=== PATIENT | male | born 1990 | race Caucasian/White ===

== ENCOUNTER 2023-04-07 12:12 | Emergency (ER) | payer SELFPAY ==
--- NOTE | 2023-04-07 13:12 | EDPHYS ---
Physician Documentation [facility] Name: Bradford Donaldson Age: 33 yrs Sex: Male : 1990 Arrival Date: 04/07/2023 Time: 12:12 Bed DIS4 Private MD: ED Physician Humble Sanchez HPI: 04/07 13:10 This 33 yrs old Male presents to ER via Ambulatory with complaints of Urinary Problem. [facility] 13:10 Is a 33-year-old male with history of hypertension and herpes that presents emerged [facility] part with complaints of dysuria, discharge, and states he has been in contact with someone diagnosed with chlamydia recently. Historical: - Allergies: 13:09 No Known Allergies; nj1 - PMHx: 13:09 Hypertensive disorder; Herpes; nj1 - PSHx: 13:09 None; nj1 - Immunization history:: Client reports having NOT received the Covid vaccine. - Social history:: Smoking status: Patient reports the use of cigarette tobacco products, denies chronic smoking, but will smoke occasionally, Reported history of juuling and/or vaping. ROS: 13:10 Constitutional: Negative for fever, chills, and weight loss, Cardiovascular: Negative jm for chest pain, palpitations, and edema, Respiratory: Negative for shortness of breath, cough, wheezing, and pleuritic chest pain. 13:10 : Positive for urinary symptoms. 13:10 All other systems are negative. Exam: 13:10 Constitutional: This is a well developed, well nourished patient who is awake, alert, m and in no acute distress. Head/Face: atraumatic. Eyes: EOMI, no conjunctival erythema appreciated ENT: Moist Mucus Membranes Neck: Trachea midline, Supple Chest/axilla: Normal chest wall appearance and motion. Cardiovascular: Regular rate and rhythm. No edema appreciated Respiratory: Normal respirations, no respiratory distress appreciated Abdomen/GI: Non distended Back: Normal ROM Skin: General appearance color normal MS/ Extremity: Moves all extremities, no obvious deformities appreciated, no edema noted to the lower extremities Neuro: Awake and alert Psych: Behavior is normal, Mood is normal, Patient is cooperative and pleasant Vital Signs: 13:04 BP 167 / 101; Pulse 84; Resp 16; Temp 98.6; Pulse Ox 100% ; Weight 88.45 kg; Height 6 nj1 ft. 0 in. ; Pain 02/19; 13:04 Body Mass Index 26.45 (88.45 kg, 182.88 cm) [facility] 13:04 Pain Scale: Adult nj1 MDM: 13:10 Patient medically screened. [facility] 16:05 Differential diagnosis: UTI. Data reviewed: vital signs, nurses notes. Counseling: I dione had a detailed discussion with the patient and/or guardian regarding: the historical points, exam findings, and any diagnostic results supporting the discharge/admit diagnosis, the need for outpatient follow up, to return to the emergency department if symptoms worsen or persist or if there are any questions or concerns that arise at home. Administered Medications: 13:45 Drug: Rocephin (cefTRIAXone) IM 500 mg Route: IM; Site: left deltoid; 13:45 Follow up: Response: Medication administered at discharge. 13:45 Drug: AZITHromycin PO 1 grams Route: PO; 13:45 Follow up: Response: Medication administered at discharge. Disposition Summary: 04/07/23 13:11 Discharge Ordered Location: Home [facility] Condition: Stable [facility] Diagnosis - Dysuria [facility] Followup: [facility] - With: Wil Damon MD - When: 2 - 3 days - Reason: Recheck today's complaints, Continuance of care, Re-evaluation by your physician Discharge Instructions: - Discharge Summary Sheet [facility] - Dysuria [facility] Forms: - Medication Reconciliation Form [facility] - Thank You Letter [facility] - Antibiotic Education [facility] - Prescription Opioid Use [facility] Prescriptions: - Doxycycline Hyclate 100 mg Oral Tablet - take 1 tablet by ORAL route every 12 hours for 14 days; 28 tablet; Refills: 0, [facility] Product Selection Permitted Signatures: Olvin Silva PA PA [facility] Colleen Harry, RN RN Katelin Whitman, RN RN nj1
--- NOTE | 2023-04-07 13:12 | ER ---
Nurse's Notes [facility] Name: Bradford Donaldson Age: 33 yrs Sex: Male : 1990 Arrival Date: 04/07/2023 Time: 12:12 Bed DIS4 Private MD: Diagnosis: Dysuria Presentation: 04/07 13:04 Chief complaint: Patient states: "im pretty sure i have an STD" told by partner she had nj1 chlamydia. Has had pain/discomfort in testicles/groin area. Denies penile discharge. Coronavirus screen: Vaccine status: Patient reports being unvaccinated. Ebola Screen: Patient denies travel to an Ebola-affected area in the 21 days before illness onset. Initial Sepsis Screen: Does the patient meet any 2 criteria? No. Patient's initial sepsis screen is negative. Does the patient have a suspected source of infection? No. Patient's initial sepsis screen is negative. Risk Assessment: Do you want to hurt yourself or someone else? Patient reports no desire to harm self or others. Onset of symptoms was January 08, 2023. 13:04 Method Of Arrival: Ambulatory [facility] 13:04 Acuity: BRUCE 4 nj1 Historical: - Allergies: 13:09 No Known Allergies; nj1 - PMHx: 13:09 Hypertensive disorder; Herpes; nj1 - PSHx: 13:09 None; nj1 - Immunization history:: Client reports having NOT received the Covid vaccine. - Social history:: Smoking status: Patient reports the use of cigarette tobacco products, denies chronic smoking, but will smoke occasionally, Reported history of juuling and/or vaping. Screenin:32 [facility] ED Fall Risk Assessment (Adult) Score/Fall Risk Level 0 - 2 = Low Risk hb Oriented to surroundings, Maintained a safe environment. Abuse screen: Denies threats or abuse. Denies injuries from another. Nutritional screening: No deficits noted. Tuberculosis screening: No symptoms or risk factors identified. Assessment: 13:32 General: Appears in no apparent distress. Behavior is calm, cooperative. Pain: Pain hb currently is 3 out of 10 on a pain scale. Neuro: Level of Consciousness is awake, alert, obeys commands, Oriented to person, place, time, situation. Cardiovascular: Patient's skin is warm and dry. Respiratory: Respiratory effort is even, unlabored, Respiratory pattern is regular, symmetrical. GI: No signs and/or symptoms were reported involving the gastrointestinal system. : Reports pain with urination. EENT: No signs and/or symptoms were reported regarding the EENT system. Derm: Skin is pink, warm \\T\\ dry. Musculoskeletal: No signs and/or symptoms reported regarding the musculoskeletal system. Vital Signs: 13:04 BP 167 / 101; Pulse 84; Resp 16; Temp 98.6; Pulse Ox 100% ; Weight 88.45 kg; Height 6 nj1 ft. 0 in. ; Pain 4/10; 13:04 Body Mass Index 26.45 (88.45 kg, 182.88 cm) [facility] 13:04 Pain Scale: Adult [facility] ED Course: 12:14 Patient arrived in ED. am2 12:21 Olvin Silva PA is PHCP. [facility] 12:21 Humble Sanchez MD is Attending Physician. [facility] 13:09 Triage completed. nj1 13:10 Arm band placed on right wrist. nj1 13:11 Wil Damon MD is Referral Physician. [facility] 13:32 Patient has correct armband on for positive identification. hb 13:36 Colleen Harry, RN is Primary Nurse. hb 13:46 No provider procedures requiring assistance completed. Patient did not have IV access hb during this emergency room visit. Administered Medications: 13:45 Drug: Rocephin (cefTRIAXone) IM 500 mg Route: IM; Site: left deltoid; hb 13:45 Follow up: Response: Medication administered at discharge. hb 13:45 Drug: AZITHromycin PO 1 grams Route: PO; hb 13:45 Follow up: Response: Medication administered at discharge. hb Medication: 13:32 VIS not applicable for this client. hb Outcome: 13:11 Discharge ordered by . [facility] 13:46 Discharged to home ambulatory. hb 13:46 Condition: stable 13:46 Discharge instructions given to patient, Instructed on discharge instructions, follow up and referral plans. medication usage, Demonstrated understanding of instructions, follow-up care, medications, Prescriptions given X 1. 13:46 Patient left the ED. hb Signatures: Olvin Silva PA PA jmm Baxter, Heather, RN RN Molly Hdez am2 Katelin Whitman RN RN nj1 Corrections: (The following items were deleted from the chart) 13:10 13:04 Chief complaint: Patient states: "im pretty sure i have an STD" told by partner nj1 she had chlamydia. Has had pain/discomfort in testicles/groin area. nj1 13:10 13:04 Pulse 84bpm; Resp 16bpm; Pulse Ox 100%; Temp 98.6F; 88.45 kg; Height 6 ft. 0 in.; nj1 BMI: 26.4; Pain 02/19, Adult; nj1
[2023-04-07] MEDS ORDERED: LIDOCAINE 1% MPF 2 ML AMPULE ONE (13:46)
[2023-04-07] MEDS ORDERED: AZITHROMYCIN 250 MG TAB ONE (13:46)
[2023-04-07] MEDS ORDERED: CEFTRIAXONE 500 MG/VIAL ONE (13:46)
[2023-04-07 13:51] VITALS: BP 167/101; TEMP 98.6; O2SAT 100
== END 2023-04-07 13:46 | disposition home or self-care (01) ==
LOC: ER 12:12
DX: R30.0 Dysuria (principal)
CPT/HCPCS: 96372; 99284

== ENCOUNTER 2025-08-07 18:20 | Emergency (ER) | payer SELFPAY ==
--- OUTSIDE RECORDS SUMMARY | 2025-08-07 18:24 | XMS REPORT | Continuity of Care Document ---
Author Name Unknown Address [address] [facility] [address] [place] [address] [facility] Address [address] [facility] [address] [place] [address] Care Team Providers Care Produce Sorter Name Role Phone Pcp, Patient Does Not Have A Primary Care Physic tricia Acosta Hawkins MD Attending Clinician [phone] ACOSTA HAWKINS Attending Clinician Unavailable Acosta Hawkins MD Attending Clinician [phone] Doctor Unassigned, [place] Attending Clinician U TONY Sands Attending Clinician Unavailable TONY SPENCER Attending Clinician Unavailable Lamont Sepulveda MD Attending Clinician Anselmo Murguia MD Attending Clinician [phone] Faiza Laurent DO Attending Clinician ANSELMO MURGUIA Attending Clinician Unavailable Kenroy Renner DO Attending Clinician [phone] Willard Chadwick Attending Clinician UnavailPEG Olivo Attending Clinician Unavailable Only, Ang Db Test Attending Clinician UnavailPeg Olivo MD Attending Clinician [phone] Natali MITCHELL, Nora Attending Clinician Unavaildwight e Unknown, Attending Attending Clinician Unavailab le UNKNOWN, ATTENDING Attending Clinician Unavailab JUAN MANUEL Guallpa Attending Clinician Unavailable VAL LOPEZ Attending Clinician Unavailable SYED MEI Attending Clinician Unavaila ACOSTA Reyes Admitting Clinician Unavailable Lino RUTHERFORD, Acosta Camacho Admitting Clinician [phone] Shantal RUTHERFORD, Anselmo Admitting Clinician [phone] Physician, No Primary or Family Admitting Clinic tricia Unavailable Payers Payer Name Policy Type Policy Number Effective Date Expirati on Date Source [facility] [id number] 2014 00:00:00 Problems Condition Name Condition Details Condition Category Status Onset Date Resolution Date Last Treatment Date Treating Clinician Comments Source Orbital fracture, closed, initial encounter Orbital fracture, closed, initial encounter Disease Active 03-20 00:00: 00 [facility] Cicatricia l ectropion of right lower eyelid Cicatricia l ectropion of right lower eyelid Disease Active 03-20 00:00: 00 [facility] Retrobulba r hematoma Retrobulba r hematoma Disease Active - 00:00: 00 [facility] Overweight (BMI 25.0-29.9) Overweight (BMI 25.0-29.9) Disease Active 04-20 00:00: 00 [facility] Elevated blood pressure reading Elevated blood pressure reading Disease Active 04-20 00:00: 00 [facility] Anxiety Anxiety Disease Active 04-20 00:00: 00 [facility] ADHD ADHD Disease Active 04-04 00:00: 00 [facility] Childhood asthma Childhood asthma Disease Active 04-04 00:00: 00 [facility] Allergies, Adverse Reactions, Alerts Allergy Name Allergy Type Status Severity Reaction(s) Onset Date Inactive Date Treating Clinician Comments Source No Known Allergie s DA Active U 04-16 00:00: 00 [facility] NO KNOWN ALLERGIE S Drug Class Active [facility] Social History Social Habit Start Date Stop Date Quantity Comments Source Sexual orientation U [facility] Exposure to SARS-CoV-2 (event) Not sure [facility] History SDOH Alcohol Frequency [facility] History SDOH Alcohol Std Drinks [facility] History SDOH Alcohol Binge [facility] Alcoholic beverage intake 2024-07-08 00:00:00 2024-07-08 00:00:00 Current drinker of alcohol (finding) [facility] History of Social function 2024-03-17 00:00:00 2024-03-17 00:00:00 [facility] Tobacco use and exposure 2024-03-10 00:00:00 2024-03-10 00:00:00 User of smokeless tobacco [facility] Alcohol intake 2024-03-10 00:00:00 2024-03-10 00:00:00 Current drinker of alcohol (finding) [facility] Alcohol Comment 2020-04-01 00:00:00 2020-04-01 00:00:00 occasional social drink [facility] Sex assigned at 1990 00:00:00 1990 00:00:00 [facility] Smoking Status Start Date Stop Date Source Never smoked tobacco [facility] Medications Ordered Medication Name Filled Medication Name Start Date Stop Date Current Medication? Ordering Clinician Indication Dosage Frequency Signature (SIG) Comments Components Source HYDROcodone -acetaminop hen 5-325 mg tablet 03-25 00:00: 00 04-02 04:59 :00 No 4647 1{tbl} Take 1 tablet by mouth every 6 (six) hours as needed for Pain (scale 7-10) for up to 7 days. Indication s: acute pain [facility] HYDROcodone -acetaminop hen (NORCO 5) 5-325 mg tablet 1 tablet 03-24 15:54: 10 03-24 15:54 :00 No 1{tbl} 1 tablet, Oral, ONCE PRN, 1 dose, Starting on Sun03/24/24 at 1054, Until Sun03/24/24 at 1054, Routine, Pain (scale 1-3), PACU [facility] HYDROmorpho ne (DILAUDID) injection 0.2 mg 03-24 15:17: 11 03-24 18:43 :14 No .2mg 0.2 mg, Slow IV Push, Q5MIN PRN, 10 doses, Starting on Sun03/24/24 at 1017, Until Sun03/24/24 at 1343, Routine, Pain (scale 7-10), PACU, Is this medication approved by a Faculty level provider? Yes, pricing/signage team member approving Restricted medication : PACU RECOVERY [facility] FENTanyl PF (SUBLIMAZE (PF)) injection 25 mcg 03-24 15:17: 03-24 16:12 :00 No 25ug 25 mcg, Slow IV Push, Q5MIN PRN, 4 doses, Starting on Sun03/24/24 at 1017, Until Sun03/24/24 at 1112, Routine, Pain (scale 4-6), PACU [facility] ondansetron (ZOFRAN (PF)) injection 4 mg 03-24 15:17: 11 03-24 18:43 :14 No 4mg 4 mg, Slow IV Push, PRN, 1 dose, Starting on Sun03/24/24 at 1017, Until Sun03/24/24 at 1343, Routine, Nausea and Vomiting (N/V), PACU [facility] bupivacaine -epinephrin e-pf (SENSORCAIN E W/EPINEPHRI NE) 0.5 %-1:200,000 20 mL, lidocaine-e pinephrine (XYLOCAINE W/EPINEPHRI NE) 1 %-1:200,000 20 mL, Hyaluronida se, Human Recomb. (HYLENEX) 266 Units 03-24 14:06: 00 03-24 15:16 :45 No PRN, Starting on Sun03/24/24 at 0906, Intra-op [facility] povidone-io dine (BETADINE) 5 % ophthalmic drops 03-24 14:03: 00 03-24 15:16 :45 No PRN, Starting on Sun03/24/24 at 0903, Until Sun03/24/24 at 1016, Routine, Intra-op [facility] tetracaine (PONTOCAINE ) 0.5 % ophthalmic drops 03-24 14:03: 00 03-24 15:16 :45 No PRN, Starting on Sun03/24/24 at 0903, Until Sun03/24/24 at 1016, Routine, Intra-op [facility] balanced salt soln no.2 irrig. (BSS) ophthalmic solution 03-24 14:03: 00 03-24 15:16 :45 No PRN, Starting on Sun03/24/24 at 0903, Until Sun03/24/24 at 1016, Routine, Intra-op [facility] cephALEXin 500 mg capsule 03-24 00:00: 00 Yes [id number] 500mg Take 1 capsule by mouth 4 (four) times daily. [facility] methylPREDN ISolone 4 mg tablets 03-24 00:00: 00 Yes [id number] Take by mouth SEE-INSTRU CTIONS. follow package directions [facility] acetaminoph en-codeine 300-30 mg tablet 03-24 00:00: 00 03-25 00:00 :00 No 4647 1{tbl} Take 1 tablet by mouth every 4 (four) hours as needed for Pain (scale 7-10). Indication s: acute pain [facility] acetaminoph en-codeine 300-30 mg tablet 03-20 00:00: 00 03-24 00:00 :00 No 4647 1{tbl} Take 1 tablet by mouth every 4 (four) hours as needed for Pain (scale 7-10) for up to 7 days. Indication s: acute pain [facility] lisinopriL (PRINIVIL,Z ESTRIL) tablet 10 mg 03-11 15:15: 00 Yes 10mg 10 mg, Oral, DAILY, First dose on Sun03/11/24 at 1015, Until Discontinu ed, Routine [facility] morpHINE (2 mg/mL) injection 2 mg 03-11 08:32: 31 Yes 2mg 2 mg, Slow IV Push, Q4HPRN, Starting on Sun03/11/24 at 0332, Until Discontinu ed, Routine, Pain (scale 7-10) [facility] sodium chloride 0.65 % nasal spray 03-11 00:00: 00 Yes [id number] 2{spray } Use 2 Sprays in each nostril 4 (four) times daily. [facility] fluticasone propionate 50 mcg/actuati on nasal spray 03-11 00:00: 00 Yes [id number] 1{spray } Use 1 [place] in each nostril in the morning and 1 [place] in the evening. [facility] lisinopriL 10 mg tablet 03-11 00:00: 00 Yes [id number] 10mg Take 1 tablet by mouth in the morning. [facility] erythromyci n 5 mg/gram (0.5 %) ophthalmic ointment 03-11 00:00: 00 Yes [id number] .5[in_u s] Place 0.5 Inches in right eye 4 (four) times daily. [facility] Carboxymeth ylcellulose Sodium (REFRESH TEARS) 0.5 % Drop 03-11 00:00: 00 Yes [id number] 1[drp] Place 1 Drop in both eyes 4 (four) times daily. [facility] acetaminoph en 325 mg tablet 03-11 00:00: 00 03-22 04:59 :00 No [id number] 650mg Take 2 tablets by mouth every 6 (six) hours for 10 days. [facility] traMADoL 50 mg tablet 03-11 00:00: 00 03-19 04:59 :00 No 4647 100mg Take 2 tablets by mouth every 8 (eight) hours as needed for Pain (scale 4-6) for up to 7 days. Indication s: acute pain [facility] HYDROcodone -acetaminop hen 5-325 mg tablet 03-11 00:00: 00 03-19 04:59 :00 No 4647 1{tbl} Take 1 tablet by mouth every 6 (six) hours as needed for Pain (scale 7-10) for up to 7 days. Indication s: acute pain [facility] enoxaparin (LOVENOX) injection 40 mg 03-10 22:00: 00 Yes 40mg 40 mg, Subcutaneo us, DAILY, First dose on Sun03/10/24 at 1700, Until Discontinu ed, Routine [facility] artificial tears(hypro mellose) (ISOPTO-TEA RS) 0.5 % ophthalmic drops 1 Drop 03-10 13:00: 00 Yes 1[drp] 1 Drop, Both Eyes, QID, First dose on Sun03/10/24 at 0800, Until Discontinu ed, Routine [facility] celecoxib (CELEBREX) capsule 200 mg 03-10 13:00: 00 Yes 200mg 200 mg, Oral, BID MEALS, First dose on Sun03/10/24 at 0800, Until Discontinu ed, Routine [facility] fluticasone propionate 50 mcg/actuati on nasal spray 1 [place] 03-10 13:00: 00 Yes 1{spray } 1 [place], Nasal, BID, First dose on Sun03/10/24 at 0800, Until Discontinu ed, Routine [facility] sodium chloride (OCEAN MIST NASAL) 0.65 % nasal spray 2 [place] 03-10 13:00: 00 Yes 2{spray } 2 [place], Nasal, QID, First dose on Sun03/10/24 at 0800, Until Discontinu ed, Routine [facility] docusate (COLACE) capsule 100 mg 03-10 13:00: 00 Yes 100mg 100 mg, Oral, BID, First dose on Sun03/10/24 at 0800, Until Discontinu ed, Routine [facility] hydralAZINE (APRESOLINE ) injection 20 mg 03-10 08:45: 00 03-10 09:14 :00 No 20mg 20 mg, Slow IV Push, ONCE, 1 dose, On Sun03/10/24 at 0345, STAT [facility] erythromyci n (ILOTYCIN) 5 mg/gram (0.5 %) ophthalmic ointment 0.5 Inch 03-10 06:45: 00 Yes .5[in_u s] 0.5 Inch, Right Eye, BID, First dose on Sun03/10/24 at 0145, Until Discontinu ed, Routine
Apply to right eye twice daily
[facility] acetaminoph en (TYLENOL) tablet 650 mg 03-10 06:30: 00 Yes 650mg 650 mg, Oral, Q6H TAPER, First dose on Sun03/10/24 at 0130, Until Discontinu ed, Routine [facility] morpHINE (2 mg/mL) injection 4 mg 03-10 06:15: 00 03-10 06:17 :00 No 4mg 4 mg, Slow IV Push, ONCE, 1 dose, On Sun03/10/24 at 0115, STAT [facility] ondansetron (ZOFRAN (PF)) injection 4 mg 03-10 06:08: 01 Yes 4mg 4 mg, Slow IV Push, Q6HPRN, Starting on Sun03/10/24 at 0108, Until Discontinu ed, Routine, Nausea and Vomiting (N/V) [facility] morpHINE (2 mg/mL) injection 2 mg 03-10 06:07: 47 03-11 06:06 :47 No 2mg 2 mg, Slow IV Push, Q4HPRN, Starting on Sun03/10/24 at 0107, Until Sun03/11/24 at 0106, Routine, Pain (scale 7-10) [facility] traMADoL (ULTRAM) tablet 50 mg 03-10 06:07: 43 03-12 06:06 :43 No 50mg 50 mg, Oral, Q8HPRN, Starting on Sun03/10/24 at 0107, Until Sun03/12/24 at 0106, Routine, Pain (scale 4-6) [facility] morpHINE (4 mg/mL) injection 4 mg 03-10 02:45: 00 03-10 01:46 :00 No 4mg 4 mg, Slow IV Push, ONCE, 1 dose, On 03/09/24 at 2145, Routine [facility] morpHINE (4 mg/mL) injection 4 mg 03-10 01:30: 00 03-10 00:37 :00 No 4mg 4 mg, Slow IV Push, ONCE, 1 dose, On Sun03/09/24 at 2030, Routine [facility] ondansetron (ZOFRAN (PF)) injection 4 mg 03-10 00:30: 00 03-10 00:36 :00 No 4mg 4 mg, Slow IV Push, ONCE, 1 dose, On Sun03/09/24 at 1930, JIM [facility] dexamethaso ne sod phos PF injection 10 mg 03-10 00:30: 00 03-10 00:36 :00 No 10mg 10 mg, Slow IV Push, ONCE, 1 dose, On Sun03/09/24 at 1930, 1 mL [facility] PARoxetine 10 mg tablet 04-20 00:00: 00 Yes [id number] 10mg Take 1 tablet by mouth daily. [facility] Vital Signs Vital Name Observation Time Observation Value Comments S ource Body weight 2024-07-08 18:54:00 96.163 kg [facility] BMI 2024-07-08 18:54:00 29.57 kg/m2 [facility] Body weight 2024-05-09 15:27:00 96.163 kg [facility] BMI 2024-05-09 15:27:00 29.57 kg/m2 [facility] Body weight 2024-03-25 18:51:00 96.163 kg [facility] BMI 2024-03-25 18:51:00 29.57 kg/m2 [facility] Systolic blood pressure 2024-03-24 16:30:00 148 mm[Hg] [facility] Diastolic blood pressure 2024-03-24 16:30:00 94 mm[Hg] [facility] Heart rate 2024-03-24 16:30:00 81 /min [facility] 2024-03-24 16:30:00 13 /min [facility] Oxygen saturation in Arterial blood by Pulse oximetry 2024-03-24 16:30:00 96 /min [facility] Body temperature 2024-03-24 15:19:00 36.72 [facility] Body height 2024-03-24 11:39:00 180.3 cm [facility] Body weight 2024-03-24 11:39:00 96.3 kg [facility] BMI 2024-03-24 11:39:00 29.61 kg/m2 [facility] Systolic blood pressure 2024-03-24 16:30:00 148 mm[Hg] [facility] Diastolic blood pressure 2024-03-24 16:30:00 94 mm[Hg] [facility] Heart rate 2024-03-24 16:30:00 81 /min Unive [facility] Respiratory rate 2024-03-24 16:30:00 13 /min [facility] Oxygen saturation in Arterial blood by Pulse oximetry 2024-03-24 16:30:00 96 /min [facility] Body temperature 2024-03-24 15:19:00 36.72 Millicent [facility] Body height 2024-03-24 11:39:00 180.3 cm [facility] Body weight 2024-03-24 11:39:00 96.3 kg [facility] BMI 2024-03-24 11:39:00 29.61 kg/m2 [facility] Body weight 2024-03-20 15:03:00 94.802 kg [facility] BMI 2024-03-20 15:03:00 29.15 kg/m2 [facility] Body weight 2024-03-17 15:24:00 94.802 kg [facility] BMI 2024-03-17 15:24:00 29.15 kg/m2 [facility] Systolic blood pressure 2024-03-17 13:46:00 147 mm[Hg] [facility] Diastolic blood pressure 2024-03-17 13:46:00 97 mm[Hg] [facility] Heart rate 2024-03-17 13:46:00 89 /min Unive [facility] Body temperature 2024-03-17 13:46:00 36.83 [facility] Body height 2024-03-17 13:46:00 180.3 cm [facility] Body weight 2024-03-17 13:46:00 94.983 kg [facility] BMI 2024-03-17 13:46:00 29.21 kg/m2 [facility] Oxygen saturation in Arterial blood by Pulse oximetry 2024-03-17 13:46:00 99 /min [facility] Systolic blood pressure 2024-03-11 16:51:00 148 mm[Hg] [facility] Diastolic blood pressure 2024-03-11 16:51:00 103 mm[Hg] [facility] Heart rate 2024-03-11 16:51:00 70 /min [facility] Body temperature 2024-03-11 16:51:00 36.61 [facility] Respiratory rate 2024-03-11 16:51:00 18 /min [facility] Oxygen saturation in Arterial blood by Pulse oximetry 2024-03-11 16:51:00 94 /min [facility] Body height 2024-03-10 09:40:00 180.3 cm [facility] Body weight 2024-03-10 04:02:00 90.719 kg [facility] BMI 2024-03-10 04:02:00 27.89 kg/m2 [facility] Systolic blood pressure 2024-03-10 02:50:00 187 mm[Hg] [facility] Diastolic blood pressure 2024-03-10 02:50:00 121 mm[Hg] [facility] Heart rate 2024-03-10 02:50:00 87 /min [facility] Body temperature 2024-03-10 02:50:00 36.83 [facility] Respiratory rate 2024-03-10 02:50:00 20 /min [facility] Oxygen saturation in Arterial blood by Pulse oximetry 2024-03-10 02:50:00 98 /min [facility] Body height 2024-03-09 23:41:00 182.9 cm [facility] Body weight 2024-03-09 23:41:00 90.719 kg [facility] BMI 2024-03-09 23:41:00 27.12 kg/m2 [facility] Procedures Procedure Date / Time Performed Performing Clinicia n Source [address] [place] OPTX ORB FLOOR BLWT FX NAREN/BITAL APPR W/ALLPLSTC 2024-03-24 13:16:00 Acosta Hawkins [facility] [address] - [place] OPEN [place] ORBITAL FLOOR BLOWOUT FX COMBINED APPR 2024-03-24 13:16:00 Acosta Hawkins [facility] [id number] - [place] REPAIR ECTROPION EXTENSIVE 2024-03-24 13:16:00 Acosta Hawkins [facility] CBC WITH DIFF 2024-03-11 10:45:00 Miguel Angel Gonzales [facility] PHOSPHORUS 2024-03-10 10:44:00 Kashif Prieto [facility] MAGNESIUM 2024-03-10 10:44:00 Kashif Prieto [facility] BASIC METABOLIC PANEL (NA, K, CL, CO2, GLUCOSE, BUN, CREATININE, CA) 2024-03-10 10:44:00 Kashif Prieto [facility] CBC WITH DIFF 2024-03-10 10:44:00 [facility] COVID-19 (MOLECULAR TESTING NUCLEIC ACID AMPLIFICATION) 2021-11-23 23:30:00 Molly Herrmann [facility] Encounters Start Date/Time End Date/Time Encounter Type Admission Type Attending Clinicians Care Facility Care Department Encounter ID Source 2024-07-08 14:00:00 2024-07-08 14:15:00 Office Visit Acosta Hawkins [facility] [employer] [facility]. 1.2.840.114 350.1.13.10 4.2.7.2.686 [id number] [facility] 2024-07-08 14:00:00 2024-07-08 14:00:00 Outpatient [facility] [id number] [facility] 2024-04-29 00:00:00 2024-06-17 09:25:20 Telephone Acosta Hawkins [facility] e(ye)[facility]. 1.2.840.114 350.1.13.10 4.2.7.2.686 [id number] [facility] 2024-05-09 10:00:00 2024-05-09 11:44:29 Outpatient [facility] [id number] [facility] 2024-05-09 10:00:00 2024-05-09 11:44:29 Office Visit Acosta Hawkins [facility] [employer]. 1.2.840.114 350.1.13.10 4.2.7.2.686 [id number] [facility] 2024-04-29 13:45:00 2024-04-29 13:45:00 Outpatient R [facility] [id number] [facility] 2024-03-17 00:00:00 2024-04-19 18:25:42 Patient Secure Msg Doctor Unassigned, [place] [facility] [employer] 1..840.114 350.1.13.10 4.2.7.2.686 [id number] [facility] 2024-03-17 00:00:00 2024-04-19 18:25:42 Patient Secure Msg Doctor Unassigned, [place] [facility] [employer] 1..840.114 350.1.13.10 4.2.7.2.686 [id number] [facility] 2024-03-10 00:00:00 2024-04-12 18:07:42 Patient Secure Msg Doctor Unassigned, [place] [facility] 1.114 350.1.13.10 4.2.7.2.686 [id number] [facility] 2024-03-11 00:00:00 2024-04-12 18:06:36 Patient Secure Msg Doctor Unassigned, [place] [facility] e(ye)[facility] 1.840.114 350.1.13.10 4.2.7.2.686 [id number] [facility] 2024-03-25 00:00:00 2024-03-26 09:10:12 Telephone Acosta Hawkins [facility] 1.84.114 350.1.13.10 4.2.7.2.686 [id number] [facility] 2024-03-25 13:45:00 2024-03-25 14:57:53 Outpatient R ACOSTA HAWKINS [facility] [id number] [facility] 2024-03-25 13:45:00 2024-03-25 14:57:53 Office Visit Acosta Hawkins [facility] e[facility]ye[facility] 1.84.114 350.1.13.10 4.2.7.2.686 [id number] [facility] 2024-03-24 08:43:00 2024-03-24 12:18:00 Surgery Acosta Hawkins [facility] 1.2.114 350.1.13.10 4.2.7.2.686 [id number] [facility] 2024-03-24 06:29:00 2024-03-24 11:43:00 Outpatient R ACOSTA HAWKINS [facility] OPH [id number] [facility] 2024-03-24 06:29:00 2024-03-24 11:43:00 Hospital Encounter Acosta Hawkins R [facility] 1.2840.114 350.1.13.10 4.2.7.2.686 [id number] [facility] 2024-03-20 10:00:00 2024-03-20 11:54:52 Outpatient R ACOSTA HAWKINS [facility] [id number] [facility] 2024-03-20 10:00:00 2024-03-20 11:54:52 [facility] 1.840.114 350.1.13.10 4.2.7.2.686 [id number] [facility] 2024-03-18 00:00:00 2024-03-19 15:19:42 Telephone [facility] 1.2.840.114 350.1.13.10 4.2.7.2.686 [id number] [facility] 2024-03-16 00:00:00 2024-03-18 17:25:27 Refill [facility] 1.2.840.114 350.1.13.10 4.2.7.2.686 [id number] [facility] 2024-03-17 10:30:00 2024-03-17 11:21:07 Office [facility]ulved[facility] 1.2840.114 350.1.13.10 4.2.7.2.686 [id number] [facility] 2024-03-17 09:15:00 2024-03-17 09:24:19 Outpatient R TONY SPENCER [facility] [id number] [facility] 2024-03-17 09:15:00 2024-03-17 09:24:19 Office Visit Tony Spencer [facility] 1.2.840.114 350.1.13.10 4.2.7.2.686 [id number] [facility] 2024-03-12 00:00:00 2024-03-12 00:00:00 Telephone Tony Spencer [facility] 1.2.840.114 350.1.13.10 4.2.7.2.686 [id number] [facility] 2024-03-09 23:06:00 2024-03-11 15:34:00 [facility] 1.2.840.114 350.1.13.10 4.2.7.2.686 [id number] [facility] 2024-03-09 18:42:00 2024-03-09 21:50:00 Emergency X ANSELMO MURGUIA YUSaima [facility] ERT [id number] [facility] 2024-03-09 18:42:00 2024-03-09 21:50:00 Emergency Kenroy Renner Yus[facility] [place] 1.2.840.114 350.1.13.10 4.2.7.2.686 [id number] [facility] 2024-03-09 18:42:00 2024-03-09 21:50:00 Emergency X ANSELMO MURGUIA YUSaima [facility] ERT [id number] [facility] 2023-04-16 08:30:00 2023-04-16 11:30:00 Emergency Willard Yo [facility] [id number] [facility] 2021-11-23 19:30:00 2021-11-23 19:30:00 Outpatient R PEG MOY [facility] [id number] [facility] 2021-11-23 19:30:00 2021-11-23 19:30:00 Laboratory Only Only, Ang Db Test Peg Moy [facility] 1.2.840.114 350.1.13.10 4.2.7.2.686 [id number] [facility] 2021-11-23 19:30:00 2021-11-23 17:35:44 Outpatient R PEG MOY [facility] [id number] [facility] 2021-11-23 00:00:00 2021-11-23 00:00:00 Orders Only Doctor Unassigned, [place] [facility] 1.2.840.114 350.1.13.10 4.2.7.2.686 [id number] [facility] 2021-07-10 00:00:00 2021-07-10 00:00:00 Telephone Nora Hurst [facility] 1.2.840.114 350.1.13.10 4.2.7.2.686 [id number] [facility] 2021-07-07 20:36:17 2021-07-07 20:55:13 Laboratory Only Only, Ang Db Test Unknown, Attending [facility]rn [facility] Medical Office Building 1..840.114 350.1.13.10 4.2.7.2.686 [id number] [facility] 2021-07-07 20:20:00 2021-07-07 20:20:00 Outpatient R UNKNOWN, ATTENDING [facility] [id number] [facility] 2021-07-07 00:00:00 2021-07-07 00:00:00 Letter (Out) Doctor Unassigned, [place] [facility] 1.2.840.114 350.1.13.10 4.2.7.2.686 [id number] [facility] 2021-07-07 00:00:00 2021-07-07 00:00:00 Letter (Out) Doctor Unassigned, [place] [facility] 1.2.840.114 350.1.13.10 4.2.7.2.686 [id number] [facility] 2021-03-27 12:40:00 2021-03-27 12:40:00 Outpatient JUAN MANUEL BELLE [facility] [id number] [facility] 2021-02-02 18:00:00 2021-02-02 18:00:[address] [facility] [id number] [facility] 2020-10-20 13:00:00 2020-10-20 13:00:00 Outpatient VAL BLAKE [facility] [id number] [facility] 2020-04-20 14:30:00 2020-04-20 14:30:[address] [facility] [id number] [facility] 2020-04-12 11:40:00 2020-04-12 11:40:[address] [facility] [id number] [facility] 2020-04-01 14:30:00 2020-04-01 14:30:[address] [facility] [id number] [facility] Results Test Description Test Time Test Comments Results Resul t Comments Source - CT HEAD/BRAIN W/O CONT 2023-04-16 10:40:00 [facility])Name: FLORINDA DONALDSON : 1990 Sex: M Name: FLORINDA DONALDSON [facility] : 1990 Age/S: 33 / M [address] [facility] Unit #: [id number] Loc: [place] [address] Phys: Willard Chadwick DO Acct: [id number] Dis Date: Status: REG ER PHONE #: [phone] Exam Date: 04/16/2023 0951 FAX #: [phone] Reason: VISION CHANGES EXAMS: CPT CODE: [id number] CT HEAD/BRAIN W/O CONT 82602 EXAM: - CT HEAD/BRAIN W/O CONT DATE: 04/16/2023 9:44 AM. INDICATION: VISION CHANGES . COMPARISON: None available. TECHNIQUE: Noncontrast images of the brain are obtained from the skull base to the vertex. Axial, sagittal, and coronal images are interpreted. AEC, mA/kV adjustment by patient size, and/or iterative reconstruction technique were used, per departmental dose-optimization program. IV contrast: None. DLP: 873.8 mGy-cm. FINDINGS: BRAIN PARENCHYMA/VENTRICLES There is no evidence of cerebral edema, mass, mass effect, hemorrhage, or recent cortical infarct. The hutton-white distinction appears maintained. The brain volume is age-appropriate. The ventricles are normal in size and configuration. The basal cisterns appear patent. The cerebellopontine angles appear unremarkable. ORBITS, VISIBLE PARANASAL SINUSES AND MASTOIDS Opacification of the right maxillary sinus, the remaining paranasal sinuses are clear. The mastoid air cells are clear. No acute orbital abnormality is seen. SKULL No skull fracture or focal lesion is identified. IMPRESSION: No acute intracranial abnormality. PAGE 1 Signed Report (CONTINUED) Name: FLORINDA DONALDSON [facility] : 1990 Age/S: 33 / M [address] [facility] Unit #: [id number] Loc: [place] [address] Phys: Willard Chadwick DO Acct: [id number] Dis Date: Status: REG ER PHONE #: [phone] Exam Date: 04/16/2023 0951 FAX #: [phone] Reason: VISION CHANGES EXAMS: CPT CODE: [id number] CT HEAD/BRAIN W/O CONT 24902 (Continued) at 1040 Reported and signed by: Kyle Munroe M.D. CC: Willard Chadwick DO Technologist:Gladis Garcia,RT(R),CT CTDI: DLP: Trnscb Date/Time: 04/16/2023 (1039) [email or web address] Orig Print D/T: S: 04/16/2023 (1042) PAGE 2 Signed Report [id number] 10:22:00* Test Item Value Reference Range Interpretation Comme nts TROPONIN-HS (test code = TROPI) <4.0 pg/mL 0-45 N CAUTION: Units o f the current test methodology (pg/mL)differ from the prior test methodology (ng/mL) by a factorof 1000. - XR CHEST 1 [id number] 10:00:00 [facility] : 1990 Sex: M FAX: iWllard Chadwick DO [place]: B St: REG Name: FLORINDA DONALDSON [facility] : 1990 Age/S: 33/M [facility] Unit #: [id number] Loc: [place] [address] Phys: Willard Chadwick DO Acct: [id number] Dis Date: Status: REG ER PHONE #: [phone] Exam Date: 04/16/2023927 FAX #: [phone] Reason: CHEST PAIN EXAMS: CPT CODE: [id number] XR CHEST 1 V 63868 EXAM: - XR CHEST 1 V DATE: 04/16/2023 8:52 AM. INDICATION: CHEST PAIN . COMPARISON: None available. TECHNIQUE: Frontal chest. FINDINGS: Lines, Tubes and Hardware: None. Lungs and Pleura: No focal consolidation, pleural effusion, or pneumothorax is identified. Heart and Mediastinum: The heart size is normal. The mediastinal contours are unremarkable. Pulmonary vascularity is unremarkable. Bones: No acute skeletal abnormalityis identified. Upper abdomen: Within normal limits IMPRESSION: No acute abnormality. at 1000 Reported and signed by: Kyle Munroe M.D. CC: Willard Chadwick DO Technologist: RT RUBI(Janice) Trnscrd Date/Time/By:04/16/2023 (1000) : By: [email or web address] Orig Print D/T: S: 04/16/2023 (1003) PAGE 1 Signed ReportCBC W/O [id number] 09:59:00* Test Item Value Reference Range Interpretation Comme nts WHITE BLOOD CELL (test code = WBC) 6.0 K/mm3 4.5-12.5 N RED BLOOD CELL (test code = RBC) 4.97 mill/mm3 4.0-5.8 N HEMOGLOBIN (test code = HGB) 14.8 gram/dL 13.0-17.5 N HEMATOCRIT (test code = HCT) 45.0 % 42.0-52.0 N MEAN CELL VOLUME (test code = MCV) 90.5 fL 80-98 N MEAN CELL HGB (test code = MCH) 29.8 picogram 27.0-33.0 N MEAN CELL HGB CONCETRATION (test code = MCHC) 32.9 gram/dL 33.0-36.0 L RED CELL DISTRIBUTION WIDTH (test code = RDW) 12.6 % 11.6-16.2 N PLATELET COUNT (test code = PLT) 284 K/mm3 150-450 N MEAN PLATELET VOLUME (test c ode = MPV) 11.2 fL 6.7-11.0 H Consult Notes Date/Time Note Provider Source 2024-03-11 09:13:51 09:14 CM at pt's bedside yesterday and the [employer] was explained to pt. Pt verbalized he would call and see if he could find a plan for himself. [facility] application was also given to pt. Provider can submit medication request to assist pt with paying for mediation at discharge. Will only pay for 2 weeks supply by emailing CM Med request by the provider. Provider can complete the casebook and submit the application. Padmaja LANE, JANUSZ, RN Care Management [email or web address] [phone] [facility] 2024-03-10 17:37:10 Associated Order(s): CONSULT BREWMASTER-ADULT Care Management Social Functional Assessment Patient Name: Florinda Donaldson Age: [age] year old Sex: male Previous admit date: N/A CM met w/patient and mom at bedside to discuss resources: patient has a child <18 who receives medicaid and patient may be able to apply for Medicaid. [facility] Resources provided and discussed, provide [facility] IHC bella along w/Patient resources center info and GoodRX card, discussed [employer] and reaching out to vendors. Current diagnosis and co-morbidities: Retrobulbar hematoma [H05.239] Social Functional Assessment: Mental Status: Alert & Oriented to Person,Place & Time Information given by: Self Patient's support system and caregiver assisted living: Self;Parent Name and phone number of primary caregiver/support system: Bella (mom) [phone] MPOA: Same as support system Living Arrangement: Home Address of living arrangement : [address] [facility] [address] Baseline functional assessment-ADLS: Independent Current functional status same as prior: Yes Do you have a PCP?: No Refered to: [facility] Agency: No Provider Services: No DME Company: No Equipment: None Hemodialysis: No Community resources utilized: None Funding Resources: Self Pay Prescription coverage plan: Self Pay Anticipated services prior to disharge: Continue Medical Eval Expected mode of discharge transportation: Personal vehicle In the past 12 months, has lack of transportation kept you from medical appointments or from getting medications?: No In the past 12 months, has lack of transportation kept you from meetings, work, or from getting things needed for daily living?: No Additional info required for discharge planning: Pending medical evaluation Recommended discharge plan: Home SFA Complete: Social Functional Assessment complete: Yes Role of Care Management explained. Dayami Hart, MSN, ACM, LOGGING CREW SUPERVISOR-C On Site Nurse Office: [phone] Weekend cell: [phone] Weekend On Site Nurse Available Sun-Sunday only Note: Please inquire with nursing staff or assigned care management Sun-Sunday [phone] as applicable for more information involving the patient's plan of care/discharge plan. Dayami Hart RN [facility] 2024-03-10 14:33:02 Associated Order(s): CONSULT SURGICAL CO-MANAGEMENT (SCM) Images from the original note were not included. Surgical Co-Management (SCM) Consult Service Consultation Note Patient: Florinda Donaldson Date of Consult: 03/10/2024 Date of Service: 03/10/2024 Referring Physician: Anselmo Murguia MD. Reason for Consult: Medical co-management HPI: Florinda Donaldson is a 34 year old male with a PMH of hypertension who is currently admitted under ENT service after a baseball hit his right side of the face. Patient suffered orbital blowout fracture with retrobulbar hematoma. Medicine was consulted due to uncontrolled hypertension. According the patient he does have a history of hypertension and was taking lisinopril 5 mg a few years ago but has not taken anything recently. HISTORIES (personally reviewed by me): Active Ambulatory Problems Diagnosis Date Noted ADHD 04/04/2020 Childhood asthma 04/04/2020 Overweight (BMI 25.0-29.9) 04/20/2020 Elevated blood pressure reading 04/20/2020 Anxiety 04/20/2020 Resolved Ambulatory Problems Diagnosis Date Noted No Resolved Ambulatory Problems No Additional Past Medical History No past surgical history on file. Social History Socioeconomic History Marital status: Single Spouse name: Not on file Number of children: Not on file Years of education: Not on file Highest education level: Not on file Occupational History Not on file Tobacco Use Smoking status: Never Smokeless tobacco: Current Substance and Sexual Activity Alcohol use: Yes Comment: occasional social drink Drug use: Never Sexual activity: Not on file Other Topics Concern Not on file Social History Narrative Not on file Social Determinants of Health Financial Resource Strain: Not on file Food Insecurity: Not on file Transportation Needs: Not on file Physical Activity: Not on file Stress: Not on file Social Connections: Not on file Intimate Partner Violence: Not on file Housing Stability: Not on file Family History Problem Relation Age of Onset No Significant Medical Problems Mother No Significant Medical Problems Father No Significant Medical Problems Brother Home medications: Prior to Admission medications Medication Sig Start Date End Date Taking? Authorizing Provider PARoxetine 10 mg tablet Take 1 tablet by mouth daily. 04/20/20 Syed Mei MD Current Medications: Scheduled meds:acetaminophen, 650 mg, Q6H TAPER ampicillin-sulbactam (UNASYN) IV piggyback, 3 g, Q6H ABX artificial tears(hypromellose), 1 Drop, QID celecoxib, 200 mg, BID MEALS docusate, 100 mg, BID enoxaparin (LOVENOX) SC Syringe, 40 mg, DAILY erythromycin, 0.5 Inch, BID erythromycin, 0.5 Inch, QID fluticasone propionate, 1 [place], BID sodium chloride, 2 [place], QID IV meds: PRN meds:morpHINE, 2 mg, Q4HPRN ondansetron, 4 mg, Q6HPRN traMADoL, 50 mg, Q8HPRN ALLERGIES: No Known Allergies REVIEW OF SYSTEMS 10 or more systems reviewed, negative except as mentioned in HPI PHYSICAL EXAM BP (!) 150/88 | Pulse 78 | Temp 36.6 ?C (97.8 ?F) | Resp 18 | Ht 1.803 m (5' 11") | Wt 90.7 kg (200 lb) | SpO2 92% | BMI 27.89 kg/m? Constitutional: General: Patient is not in acute distress. Appearance: Right facial swelling and trauma noted with right eye closed. Cardiovascular: Rate and Rhythm: Normal rate and regular rhythm. Pulses: Normal pulses. Heart sounds: Normal heart sounds. No murmur heard. Pulmonary: Effort: Pulmonary effort is normal. No respiratory distress. Breath sounds: Normal breath sounds. No wheezing. Abdominal: Soft, nontender nondistended. Normal bowel sounds. Musculoskeletal: General: No swelling or tenderness. Normal range of motion. Skin: General: Skin is warm. Coloration: Skin is not jaundiced. Findings: No lesion. LABS/IMAGING - reviewed, recent results as below: Lab Results Component Value Date/Time NA 140 03/10/2024 05:44 AM K 4.1 03/10/2024 05:44 AM CA 9.6 03/10/2024 05:44 AM CL 101 03/10/2024 05:44 AM BUN 13 03/10/2024 05:44 AM CREAT 0.84 03/10/2024 05:44 AM EGFR 118.1 03/10/2024 05:44 AM GLU 140 (H) 03/10/2024 05:44 AM TCO2 25 03/10/2024 05:44 AM WBC 14.26 (H) 03/10/2024 05:44 AM RBC 4.94 03/10/2024 05:44 AM PLT 261 03/10/2024 05:44 AM HGB 14.7 03/10/2024 05:44 AM HCT 43.5 03/10/2024 05:44 AM PHOS 3.0 03/10/2024 05:44 AM MG 2.0 03/10/2024 05:44 AM Most Recent UA: No results found for: "UPROTEIN", "UPH", "UGLUCOSE", "UKETONES", "UBILI", "UBLOOD", "UUROBILIN", "ULEUKEST", "UNITRITE", "USPGRAV" Radiology (48 HRS): CT MAXILLOFACIAL/MANDIBLE WO CONTRAST Result Date: 03/10/2024 Fractures of the right inferior orbital wall with retrobulbar hematoma and proptosis. There is suspected edema of the right lateral rectus muscle. Findings are concerning for increased right intraorbital pressure. Urgent ophthalmology consult is recommended. No ocular muscle herniation or entrapment. Medial orbital wall fracture with fat herniation into the right ethmoidal air cells. There are fractures of the medial and posterior conde of the right maxillary sinus with significant hemosinus. Otherwise no cranial and skull base fracture or intracranial hemorrhage. The findings of this study, including concern for right orbital floor and medial wall fracture, retrobulbar hematoma, proptosis, maxillary hemosinus, and concern for increased intraorbital pressure, and recommendation for urgent ophthalmology consult have been discussed by Dr. Abiodun Penn with and acknowledged by Dr. Renner, over the phone on 03/09/2024 at 9:00 PM with readback. Preliminary Report Dictated by Resident: Kevin Garcia MD., have reviewed this study and agree with the above report. CT HEAD WO CONTRAST Result Date: 03/10/2024 Fractures of the right inferior orbital wall with retrobulbar hematoma and proptosis. There is suspected edema of the right lateral rectus muscle. Findings are concerning for increased right intraorbital pressure. Urgent ophthalmology consult is recommended. No ocular muscle herniation or entrapment. Medial orbital wall fracture with fat herniation into the right ethmoidal air cells. There are fractures of the medial and posterior conde of the right maxillary sinus with significant hemosinus. Otherwise no cranial and skull base fracture or intracranial hemorrhage. The findings of this study, including concern for right orbital floor and medial wall fracture, retrobulbar hematoma, proptosis, maxillary hemosinus, and concern for increased intraorbital pressure, and recommendation for urgent ophthalmology consult have been discussed by Dr. Abiodun Penn with and acknowledged by Dr. Renner, over the phone on 03/09/2024 at 9:00 PM with readback. Preliminary Report Dictated by Resident: Kevin Garcia MD., have reviewed this study and agree with the above report. ASSESSMENT & PLAN: Active Medical Conditions : Right medial orbital wall and orbital floor fracture Uncontrolled hypertension No surgical intervention from ENT. Patient can be discharged on lisinopril 10 mg daily. Counseled to decrease salt consumption, quit alcohol and tobacco use. Patient counseled to follow-up with his primary care doctor and check his blood pressure at least once or twice a day. Patient can be discharged from medical perspective. We will sign off. Remberto Cruz MD 03/10/2024 2:33 PM Commissary Officer Internal Medicine Portions of this note were created using a voice-recognition transcribing system. Typographical errors and incorrect words or phrases may have been missed during proofreading. Please interpret accordingly. -INTERNAL MEDICINE STAFF [facility] 2024-03-10 10:11:30 Images from the original note were not included. Department of Ophthalmology and Visual Services Consult 03/10/2024 10:11 Florinda Donaldson - [id number] Date of Service: 03/10/2024 10:11 Daycare Manager: Jenn Burnette MD Reason for Consult: Right Eye Trauma Subjective: Doing well and feeling much better, endorses blurry vision with yobany Ocular ROS: Contact lens wearer - No Trauma to the eye - Yes Change of vision - Yes Presbyopia - No Diplopia - Yes Photophobia - No Photopsia and floaters - No Eye pain - Yes Discharge - No Redness - Yes Past History Past Medical History: Diagnosis Date ADHD 04/04/2020 Childhood asthma Ocular History See HPI Ocular Family History See HPI Ocular Medications See HPI Medications Current Facility-Administered Medications: acetaminophen (TYLENOL) tablet 650 mg, 650 mg, Oral, Q6H TAPER, Kashif Prieto MD, 650 mg at 03/10/24 0337 ampicillin-sulbactam (UNASYN) 3 g in NaCl 0.9% (NS) 100 mL VIAL-MATE, 3 g, IV Piggyback, Q6H ABX, Kashif Prieto MD, Last Rate: 200 mL/hr at 03/10/24 0956, 3 g at 03/10/24 0956 artificial tears(hypromellose) (ISOPTO-TEARS) 0.5 % ophthalmic drops 1 Drop, 1 Drop, Both Eyes, QID, Kashif Prieto MD, 1 Drop at 03/10/24 0940 celecoxib (CELEBREX) capsule 200 mg, 200 mg, Oral, BID MEALS, Kashif Prieto MD, 200 mg at 03/10/24 0942 docusate (COLACE) capsule 100 mg, 100 mg, Oral, BID, Kashif Prieto MD, 100 mg at 03/10/24 0942 enoxaparin (LOVENOX) injection 40 mg, 40 mg, Subcutaneous, DAILY, Kashif Prieto MD erythromycin (ILOTYCIN) 5 mg/gram (0.5 %) ophthalmic ointment 0.5 Inch, 0.5 Inch, Right Eye, BID, Kashif Prieto MD, 0.5 Inch at 03/10/24 0939 erythromycin (ILOTYCIN) 5 mg/gram (0.5 %) ophthalmic ointment 0.5 Inch, 0.5 Inch, Right Eye, QID, Kashif Prieto MD fluticasone propionate 50 mcg/actuation nasal spray 1 [place], 1 [place], Nasal, BID, Kashif Prieto MD, 1 [place] at 03/10/24 0940 morpHINE (2 mg/mL) injection 2 mg, 2 mg, Slow IV Push, Q4HPRN, Kashif Prieto MD, 2 mg at 03/10/24 0943 ondansetron (ZOFRAN (PF)) injection 4 mg, 4 mg, Slow IV Push, Q6HPRN, Kashif Prieto MD, 4 mg at 03/10/24 0201 sodium chloride (OCEAN MIST NASAL) 0.65 % nasal spray 2 [place], 2 [place], Nasal, QID, Kashif Prieto MD traMADoL (ULTRAM) tablet 50 mg, 50 mg, Oral, Q8HPRN, Kashif Prieto MD, 50 mg at 03/10/24 0356 Allergies No Known Allergies Physical Exam BP (!) 175/109 | Pulse 94 | Temp 36.4 ?C (97.5 ?F) | Resp 18 | Ht 1.803 m (5' 11") | Wt 90.7 kg (200 lb) | SpO2 94% | BMI 27.89 kg/m? Mental Status Oriented to Time, Place & Person: Yes Mood, Affect: Normal Visual Acuity: OD: 20/30, does not improve with PH, without correction, near card OS: 20/20, without correction, near card Intraocular Pressure: Patient administered 1 drop of proparacaine into each eye. OD: 11 OS: 12 Pupils: OD: dark: 5 mm light: 5 mm rAPD: no by reverse OS: dark: 4 mm light: 2 mm rAPD: no Motility: OD: Restricted -1 all directions OS: Full Visual Field: Grossly full OU OPH Exam: Slit Light Exam OD: External: Periorbital ecchymosis and edema, Lateral canthotomy noted Lids and Lashes: Mechanical ptosis Conjunctiva/Sclera: Temporal and inferior chemosis and subconjunctival hemorrhage Cornea: Inferior epi-defect Anterior Chamber: deep 4+ cell pigment and RBCs Iris: dilated, not reactive Lens: Clear OS: External: wnl, no edema, erythema, tenderness Lids and Lashes: no ptosis, wnl Conjunctiva/Sclera: white, not injected Cornea: clear Anterior Chamber: deep and quiet Iris: no lesions Lens: Clear Dilated Fundus Exam: Patient dilated with 1 drop of 2.5% phenylephrine and 1% tropicamide into each eye at 12:08 AM. OD: Optic Nerve: pink Macula: attached Vessels: normal caliber Periphery: no lesions, attached Vitreous:clear OS: Optic Nerve: pink Macula: attached Vessels: normal caliber Periphery: no lesions, attached Vitreous:clear Labs reviewed: Radiology: No results found for this visit on 03/09/24. Assessment/Plan: 34 year old male seen by ophthalmology for: Retrobulbar Hematoma OD Traumatic Iritis OD Orbital Floor Fracture, OD 34 yo M s/p lateral canthotomy for retrobulbar hematoma in the setting of facial trauma - VA 20/30 OD, IOP 20, no RAPD by reverse - AC deep and symmetric Significant debris (cell, pigment, RBC), IOP wnl, globe formed on imaging > low concern for open globe -->likely micro-hyphema which may carpet or rug layer helper and could secondarily clog TM / watch IOP closely - EOM limited by conjunctival chemosis. Has diplopia in all directions, liely 2/2 suzy-orbital edema. No oculo-cardiac reflex > low concern for muscle entrapment - No foreign bodies visualized on exam, small epi-defects of the cornea, no hyphema, no scleral or conjunctival laceration - No retinal tears, hemorrhages, detachments noted. - Will recommend deferring surgery until edema and erythema resolves - Would benefit from topical steroid, Cycloplegia; must ensure that patient uses steroid gtts for limited timeframe (risk of sequelae of long-term steroid drops including ocular hypertension, corneal infections, etc.) Plan: - Continue to monitor IOP on outpatient basis - Will require canthotomy repair once suzy-orbital swelling and retro-bulbar hematoma has resolved - to be done outpatient - Erythromycin ointment to the canthotomy site QID - Prednisolone QID OD - Cyclogyl BID OD - Artifical tears, 4 times a day, both eyes - Counseled patient to: - keep head elevated about 30 degrees - ice patch over affected area 15 mins per session q1h for the initial 48 hours - avoid nose blowing - avoid straining or lifting objects >10 lbs - wear eye protection-polycarbonate lenses, when doing activities that could expose the eye - monitor for signs of RD (retinal detachment) such as flashes and sudden onset of many floaters - be seen urgently if worsening symptoms - Affrin at bedside for nasal congestion, avoid patient from blowing nose to decrease risk of developing orbital compartment syndrome - Will have patient follow with ophthalmology within the week (Referral sent) Ophthalmology will sign off at this time. Please re-engage and contact ophthalmology resident on-call if any new concerns. Contact: Please call [facility] Ophthalmology at [phone] for appointment requests The management plan was discussed with the patient and the consulting team. This note is preliminary. The plan of care will not be final until the faculty attestation is included. Staffed with Dr. Donny Le MD PGY-2, Department of Ophthalmology and Visual Sciences I discussed the case and examined the patient (on 03/10/24) with Dr. Le and agree with his findings and assessment and plan. Gurdeep Hines MD Professor Dept. of Ophthalmology & Visual Sciences [facility] OPH-OPHTHALMOLOGY STAFF [facility] - Health History and Physical Notes Date/Time Note Provider Source 2024-03-24 07:02:34 Outpatient Surgery History & Physical 03/24/2024 Florinda Donaldson 1990, 34 year old, /White, male [id number] Admit type: DSU Location: [facility] Attending Surgeon: Dr. Hawknis Resident Surgeon: Dr. Wheeler Chief Complaint: Orbital Floor Fracture Repair, Ectropion ; right Past Medical History: Diagnosis Date ADHD 04/04/2020 Childhood asthma No past surgical history on file. Current Facility-Administered Medications Medication Dose Route Frequency Last Rate Last Admin lactated ringers IV infusion 1,000 mL 1,000 mL IV Infusion ONCE Patient has no known allergies. HEENT: See progress note for full exam Heart: WNL Lungs: WNL Abdomen: WNL Blood pressure (!) 142/97, pulse 64, temperature 35.9 ?C (96.7 ?F), temperature source Tympanic, resp. rate 16, height 1.803 m (5' 11"), weight 96.3 kg (212 lb 4.9 oz), SpO2 100%. Impression/Diagnosis: Right Orbital Floor Fracture ; Right cicatricial ectropion Treatment Plan/Procedure: Right Orbital floor fracture repair; with coated titanium mesh; right lower eyelid lateral tarsal strip Risks, benefits, and alternatives discussed with patient who voices understanding and wishes to proceed. Written consent was obtained from patient. JENNIFER Wheeler MD Ophthalmology PGY4 Associated attestation - Acosta Hawkins MD - 03/24/2024 7:46 AM CDT I personally saw and evaluated patient with Dr. Wheeler and agree with H&P. Acosta Hawkins MD [facility] 2024-03-20 10:00:00 Outpatient Surgery History & Physical 03/20/2024 11:59 AM Florinda Donaldson 1990, 34 year old, /White, male [id number] Admit type: DSU Location: [facility] Attending Surgeon: Dr. Hawkins Resident Surgeon: Dr. Wheeler Chief Complaint: Orbital Floor Fracture Repair, Ectropion ; right Past Medical History: Diagnosis Date ADHD 04/04/2020 Childhood asthma History reviewed. No pertinent surgical history. Current Outpatient Medications Medication Sig Dispense Refill acetaminophen-codeine 300-30 mg tablet Take 1 tablet by mouth every 4 (four) hours as needed for Pain (scale 7-10) for up to 7 days. Indications: acute pain 10 tablet 0 acetaminophen 325 mg tablet Take 2 tablets by mouth every 6 (six) hours for 10 days. 40 tablet 1 Carboxymethylcellulose Sodium (REFRESH TEARS) 0.5 % Drop Place 1 Drop in both eyes 4 (four) times daily. 15 mL 0 erythromycin 5 mg/gram (0.5 %) ophthalmic ointment Place 0.5 Inches in right eye 4 (four) times daily. 3.5 g 0 fluticasone propionate 50 mcg/actuation nasal spray Use 1 [place] in each nostril in the morning and 1 [place] in the evening. 16 g 3 lisinopriL 10 mg tablet Take 1 tablet by mouth in the morning. 40 tablet 3 sodium chloride 0.65 % nasal spray Use 2 Sprays in each nostril 4 (four) times daily. 44 mL 0 PARoxetine 10 mg tablet Take 1 tablet by mouth daily. 30 tablet 2 No current facility-administered medications for this visit. Patient has no known allergies. HEENT: See progress note for full exam Heart: WNL Lungs: WNL Abdomen: WNL Weight 94.8 kg (209 lb). Impression/Diagnosis: Right Orbital Floor Fracture ; Right cicatricial ectropion Treatment Plan/Procedure: Right Orbital floor fracture repair; with coated titanium mesh; right lower eyelid lateral tarsal strip Risks, benefits, and alternatives discussed with patient who voices understanding and wishes to proceed. Written consent was obtained from patient. JENNIFER Wheeler MD Ophthalmology PGY4 I personally saw and evaluated patient with Dr. Wheeler and agree with H&P. Acosta Hawkins MD [facility] 2024-03-10 00:36:13 Department of Otolaryngology H&P Date of Service: 03/10/2024 CC: eye pain History of Present Illness Florinda Donaldson is a 34 year old male who was struck by ~90mph baseball pitch to face around 6pm and went to ED in [place] with CT showing right medial orbital wall and orbital floor blowout fracture with retrobulbar hematoma. He underwent lateral canthotomy in ED there and then was transferred here for further evaluation. He reports initially having near complete loss of vision in right eye, which then significantly improved after lateral canthotomy. He reports still some blurry vision when looking down. He reports associated right facial pain. He had mild nosebleed as well that stopped in a few minutes without intervention. Denies problems with teeth fitting together. Denies ear pain or hearing changes. PMH Past Medical History: Diagnosis Date ADHD 04/04/2020 Childhood asthma PSH No past surgical history on file. Meds No current facility-administered medications for this encounter. Current Outpatient Medications Medication Sig Dispense Refill PARoxetine 10 mg tablet Take 1 tablet by mouth daily. 30 tablet 2 Social History Social History Socioeconomic History Marital status: Single Tobacco Use Smoking status: Never Smokeless tobacco: Never Substance and Sexual Activity Alcohol use: Yes Comment: occasional social drink Drug use: Never Family History Family History Problem Relation Age of Onset No Significant Medical Problems Mother No Significant Medical Problems Father No Significant Medical Problems Brother Allergies No Known Allergies ROS: Constitutional: Negative; Eyes: +blurry vision; ENT: See HPI; CV: negative; Resp:negative; GI: Negative; : negative; MSK: negative; Integumentary: negative; Neuro: negative; Psych: negative; Endoc: negative; Heme: negative; Allergy/Immunology: negative Physical Exam: Vitals: BP (!) 168/98 | Pulse 81 | Temp 36.9 ?C (98.4 ?F) (Oral) | Resp 18 | Ht 1.803 m (5' 11") | Wt 90.7 kg (200 lb) | SpO2 98% | BMI 27.89 kg/m? Gen: NAD, alert, voice normal without hoarseness Eyes: EOMI bilaterally with restricted gaze, erythema to right eye sclera Ears: Bilateral external ears normal in shape and appearance, no mastoid swelling Nose: No external deformity, No septal deviation, no septal hematoma, no bleeding Oral cavity: No trismus, fair dentition, no masses Oropharynx: no bleeding noted, mucosa regular Face: Severe edema and ecchymosis surrounding right periorbital region, superficial abrasion, scratch inferior to right orbit, no laceration Neck/Lymph:No neck masses or adenopathy Pulmonary: No distress, normal WOB, no stridor, no retractions, no nasal flaring, no tripod positioning, tolerating secretions without issue Cardio: Extremities warm, regular rate Neuro: right CN V2 mildly decreased compared to left, CN otherwise intact, face symmetrical Skin: no significant facial lesions Psych: appropriate affect Labs: Hemogram No results for input(s): "WBC", "HGB", "HCT", "PLT" in the last 72 hours. Chemistry No results for input(s): "NA", "K", "CL", "TCO2", "BUN", "CREAT", "GLU", "PHOS", "MG", "CA", "CAIONIZ" in the last 72 hours. Imaging: CT max/face 03/09/24 Fractures of the right inferior orbital wall with retrobulbar hematoma and proptosis. There is suspected edema of the right lateral rectus muscle. Findings are concerning for increased right intraorbital pressure. Urgent ophthalmology consult is recommended. No ocular muscle herniation or entrapment. Medial orbital wall fracture with fat herniation into the right ethmoidal air cells. There are fractures of the medial and posterior conde of the right maxillary sinus with significant hemosinus. Otherwise no cranial and skull base fracture or intracranial hemorrhage. Procedure: None Assessment and Plan/Recommendations Florinda Donaldson is a 34 year old male struck by baseball on right side of face with right medial orbital wall and orbital floor fracture >50%, however no restriction of gaze or signs of entrapment on imaging or ophthalmology evaluation. He did have a retrobulbar hematoma and underwent lateral canthotomy at [facility] ED prior to arrival with improvement in edema and significant improvement in vision. Will admit for observation, however, given lack of indications for urgent repair, will plan for outpatient surgical repair to let edema improve beforehand. -No acute ENT surgical intervention at this time -Will admit for observation; will likely plan for outpatient ENT follow up and outpatient ENT surgical repair of orbital floor fracture -Appreciate Ophthalmology consultation and recs --Erythromycin ointment bid to right eye and qid to canthotomy site --Artificial tearsca -Facial trauma precautions: Keep HOB elevated at all times (minimal 30 degrees), sneeze/cough with mouth open, no "nose blowing," do not bend over or strain, apply ice packs to affected area-20 minutes on/20 minutes off. -Nasal saline bid, Flonase bid -Follow up with Ophthalmology as per their recs -Consult care management to help pt with obtaining insurance Patient discussed with ENT senior resident. Kashif Prieto MD Otolaryngology Associated attestation - Anselmo Murguia MD - 03/10/2024 7:09 AM CDT I have discussed the patient with the resident, Dr. Prieto, reviewed and agree with the resident's note, and actively participated in all decision making processes. See the resident's note for full details. Anselmo Murguia MD, PhD, GRETA Commissary Officer, Pediatric Otolaryngology Department of Otolaryngology-Head and Neck Surgery [facility] Notes Date/Time Note Provider Source 2024-05-02 08:18:44 05/02/24 8:19 amPatient has been scheduled for 05/09 PSS spoke direclty to mom, Prema Jalloh [facility] 2024-04-29 08:19:01 Copied from [facility] #[id number]. Topic: Appointment - Schedule Appointment >> Apr 29, 2024 8:15 AM Patient Department Of Mathematics Chair wrote: Florinda Donaldson is a 34 year old male Patient mom calling to reschedule 1 mo PO, is requesting for 05/05 or 05/09 in the afternoon if possible Please advise [phone] (home) Kelli Abarca [facility] 2024-03-26 09:09:18 Called and spoke to Lauren at [facility]. States she has no notation of issues and patient has picked up medication. Closing encounter. Gertrudis Coon 03/26/2024 9:09 AM Gertrudis Coon [facility] 2024-03-25 16:33:54 Copied from [facility] #[id number]. Topic: Clinical - Medical Advice >> March 25, 2024 4:31 PM Patient Department Of Mathematics Chair wrote: Nury from [facility] pharmacy calling to speak with nurse.Please advise.[phone] please ask for Pharmacist Lisa Ram [facility] 2024-03-24 07:15:09 Ophthalmology Procedure Note 03/24/2024 Florinda Donaldson [id number] 1990 Attending: Acosta Hawkins MD Resident: Radha Wheeler MD Pre-op diagnosis: Right orbital medial wall/floor fracture; Right Lower eyelid cicatrical ectropion Post-op diagnosis: Same Procedure: Right orbital reconstruction with Coated Titanium orbital mesh implant: 2 cm x 2.5 cm; Right Lower eyelid lateral tarsal strip Indications: The patient presents with a history of aRight orbital medial wall/orbital floor fracture. After a thorough discussion of the risks, benefits, and alternatives were discussed with the patient, and the patient elected to proceed with reconstruction of the Right orbit with orbital mesh implant. Informed consent was obtained and a copy was inserted into the patient's chart. Procedure: The operative site was confirmed and marked in the holding area. The patient was transferred to the operating room, where a timeout was taken to confirm the patient, site, procedure, allergies, and anesthesia. Anesthesia was general endotracheal. Intravenous antibiotics were given intraoperatively. The patient was prepped and draped in the usual sterile fashion. Sharp Iris scissors were used to make a lateral canthotomy. The inferior lateral canthal tendon was isolated and cut to perform a lateral inferior cantholysis. Next, a transconjuntival incision just below the inferior tarsal plate was made. Further dissection to the inferior orbital rim was created by electrocautery on a Bee needle. The periosteum of the inferior orbital rim was dissected from the bone with the Howard elevator. Next, a zjig-aodc-ycjr technique with malleable retractors was used to remove the majority of the orbital contents from the medial/inferior orbital wall defect. The defect was sized, and a titanium plate with porous polyethylene coating (2cm x 2.5cm 3D Orbital Floor Implant MTB ) was placed over the defect and secured to the inferior orbital rim with two 3mm self-drilling screws. Periosteum was closed over the inferior orbital rim with multiple interrupted 4-0 Vicryl sutures. Next, conjunctiva was closed with multiple interrupted 6-0 plain gut sutures. A lateral canthopexy was created using 4-0 double-armed Supramyd. The lateral canthal angle was reformed with 6-0 chromic suture and canthotomy incision were closed with multiple interrupted 6-0 fast-absorbing plain gut sutures. The patient was extubated and taken to the post-anesthesia care unit in stable condition. The patient tolerated the procedure well. Anesthesia: GETA, RBB EBL: 5-10 cc Complications: None Condition after surgery: stable Dispo: Eye clinic tomorrow for post op day [address] Hawkins was present and supervised the entire case Radha Wheeler MD Ophthalmology PGY4 I was present for the entire case and agree with Dr. Wheeler's op note. Acosta Hawkins MD [facility] 2024-03-21 11:25:21 03/21/24-NO SURGICAL CONSENT PRESENT,CURRENTLY IN [facility]. ZEKE MITCHELL Kay Stallings RN [facility] 2024-03-18 17:23:53 Duplicate request, closing encounters Pamella Smith RN [facility] 2024-03-18 11:33:03 Spoke to patient, he states he has been taking the Tylenol as prescribed and uses the [place] first thing in the morning as this is typically when he is in the most amount of pain. He uses the Tramadol throughout the day as needed for spikes in pain. Previous RX sent was only for 4 days on 03/11/24 Dr. Spencer, he is requesting a refill on both. Please advise, the pharmacy is up to date. Fatimah Blood RN Fatimah Blood RN [facility] 2024-03-18 10:59:13 Copied from [facility] #[id number]. Topic: Clinical - Medical Advice >> March 18, 2024 10:58 AM Patient Department Of Mathematics Chair wrote: Pt calling to fu on refill. Pt states the pharmacy does not have the rx. Pt would like to know if Mary Hopson has to call to give approval [facility] [address] [place] [address] Winter Choudhury V [facility] 2024-03-12 14:23:14 Spoke with MOP and pt is now scheduled for 03/17 at 9:00am. Nothing further needed at this time. Nakia James [facility] 2024-03-12 13:29:59 Second attempt to contact pt to schedule per staff message with , there was no answer, lvm for pt to call back and schedule accordingly. T [facility] 2024-03-12 13:29:54 ----- Message from Nakia James sent at 03/11/2024 9:00 AM CDT ----- Good Morning, I attempted to contact pt to schedule, there was no answer and I will attempt to contact again at a later time. Thanks, Nakia James ----- Message ----- From: Miguel Angel Gonzales DO Sent: 03/11/2024 7:32 AM CDT To: Tato Pierce MD; Naveed [facility], Could we please schedule above patient to see dr Spencer in clinic on SundayMarch 17. Okay to overbook. Thank you Miguel Angel Gonzales DO Resident Physician, PGY-2 Otolaryngology - Head & Neck Surgery 03/11/24 [facility] 2024-03-11 08:19:59 Problem: Discharge Planning Goal: Adequate for discharge Outcome: Progressing as expected Goal: Effective communication Outcome: Progressing as expected Problem: Pain Goal: Control of pain at or below patient's documented comfort goal Outcome: Progressing as expected Goal: Reduction in pain sensation Outcome: Progressing as expected Problem: Infection Risk Goal: Absence of infection Outcome: Progressing as expected Navarro Iqbal RN [facility] 2024-03-10 13:32:49 Problem: Discharge Planning Goal: Adequate for discharge Outcome: Progressing as expected Goal: Effective communication Outcome: Progressing as expected Problem: Pain Goal: Control of pain at or below patient's documented comfort goal Outcome: Progressing as expected Goal: Reduction in pain sensation Outcome: Progressing as expected Problem: Infection Risk Goal: Absence of infection Outcome: Progressing as expected Juwan Rizvi RN [facility] 2024-03-10 04:43:20 Problem: Pain Goal: Control of pain at or below patient's documented comfort goal Outcome: Progressing as expected Goal: Reduction in pain sensation Outcome: Progressing as expected Problem: Infection Risk Goal: Absence of infection Outcome: Progressing as expected [facility] 2024-03-10 03:15:47 Patient admitted to [place] [address]. Patient agrees to admission, discussed plan of care with patient and family. Patient is awake, alert, oriented, resp reg unlabored, color appropriate for race, PIV intact. No adverse reaction to medications administered while in ED. Belongings with patient to unit. T Aleta Smith RN [facility] 2024-03-10 03:14:26 Transportation at bedside. [facility] 2024-03-10 02:20:03 Report given. Patient to be admitted to [place] [address]. Patient verbalized understanding of plan of care. Patient A&O x4. VSS. NAD noted. Resp even and non labored. Skin warm and dry. IV patent. Belongings to be sent with patient. Awaiting transportation. [facility] 2024-03-10 01:40:56 Pt reports one episode of vomiting. [facility] 2024-03-10 01:29:44 Pt amb to restroom. [facility] 2024-03-10 01:22:25 Pt to be admitted. \\ [facility] 2024-03-10 01:09:18 General surgery at bedside. T [facility] 2024-03-09 23:45:44 NAVEED at bedside. T [facility] 2024-03-09 23:25:38 Pt given warm blanket at bedside. T [facility] 2024-03-09 23:05:00 NAVEED returned page and advised of pt's arrival to ED. T [facility] 2024-03-09 23:02:14 Florinda Donaldson is a 34 year old male arrives to ED as NAVEED referral from [facility] s/p baseball hit R eye. Patient R eye swollen shut with bruising.Patient is AAOx4, RR E/U, NAD noted. Patient has 20g pic to [facility] from OSH NAVEED paged [phone] Veronique Bhatt RN [facility] 2024-03-09 23:00:00 Images from the original note were not included. [facility] Emergency Department Note Patient Name: Florinda Donaldson Date of : 1990 34 year old male Treatment Room: 128/128 Primary Care Physician: PATIENT DOES NOT HAVE A PCP Patient Escorted by: Self [9] Mode of Arrival: EMS - [facility] [[id number]] EMS Treatment Prior to ED Arrival: CIVIL CAD DESIGNER treatment: None Travel and Exposure Screening: Symptoms Does patient have any of these symptoms?: (not recorded) Exposure Screening Has patient had contact with someone with a communicable disease in the last month?: (not recorded) Diseases exposed to:: (not recorded) Is Patient ?: (not recorded) Exposure Date: (not recorded) Chief Complaint: Chief Complaint Patient presents with REFERRAL NAVEED History of Present Illness: HPI 34yo male presents s/p eye injury. Pt was struck to face with baseball going 90 mph. Pt seen at OSH and noted to have retrobulbar hematoma and medial orbital wall fracture. Lateral canthotomy done at OSH. Prior to procedure, vision was black. Vision improved since procedure. Denies any other pain/injuries Past Medical History/Immunizations: Past Medical History: Diagnosis Date ADHD 04/04/2020 Childhood asthma Tetanus received in last 5 years: Unknown Childhood immunizations: Up-to-date Allergies: No Known Allergies Past Social History: Tobacco Use Never smoked or used smokeless tobacco. Alcohol Use Yes. Comments: occasional social drink Drug Use Never. Past Surgical History: No past surgical history on file. Review of Systems: Review of Systems Eye: +right eye pain ENT: +right facial pain CV: No chest pain, No palpitations Respiratory: No SOB, No cough GI: No vomiting, No abdominal pain, No diarrhea : No discharge. No pelvic pain Musculoskeletal: negative Skin: No rash, No color change Neuro: No numbness/tingling, No focal weakness Gen: No fevers, chills. +SANDOVAL Physical Exam: ED Triage Vitals [03/09/24 2302] Weight 90.7 kg (200 lb) Actual or estimated Estimated by patient/family report Height 1.803 m (5' 11") BP (!) 168/98 Pulse 81 Resp 18 Temp 36.9 ?C (98.4 ?F) Temp source Oral SpO2 98 % Measured on Room air Physical Exam General: Mild distress 2/2 pain to right eye Head: non-tender, no swelling and no obvious injury Neck: supple and trachea midline; no posterior midline TTP Eyes: ENT: normal external inspection Cardiovascular: regular, rate, rhythm and heart sounds normal Respiratory: no respiratory distress and breath sounds normal Abdomen: soft, non-tender, non-distended and normal bowel sounds Back: non-tender and normal inspection Skin: intact and warm, dry Neuro/Psych: alert, oriented x3, cooperative, interactive and mood/affect normal Radiology: No orders to display Lab Results: Lab Results - No data to display EKG: If EKG completed, see Procedure Note. Orders and Treatments: Orders Placed This Encounter Procedures Cbc with Diff Basic Metabolic Panel (NA, K, CL, CO2, GLUCOSE, BUN, CREATININE, CA) Magnesium Phosphorus Consult Muffle Operator-Adult O2 Per Protocol Orders Placed This Encounter Medications morpHINE (2 mg/mL) injection 4 mg enoxaparin (LOVENOX) injection 40 mg traMADoL (ULTRAM) tablet 50 mg morpHINE (2 mg/mL) injection 2 mg docusate (COLACE) capsule 100 mg ondansetron (ZOFRAN (PF)) injection 4 mg ampicillin-sulbactam (UNASYN) 3 g in NaCl 0.9% (NS) 100 mL VIAL-MATE sodium chloride (OCEAN MIST NASAL) 0.65 % nasal spray 2 [place] fluticasone propionate 50 mcg/actuation nasal spray 1 [place] acetaminophen (TYLENOL) tablet 650 mg celecoxib (CELEBREX) capsule 200 mg artificial tears(hypromellose) (ISOPTO-TEARS) 0.5 % ophthalmic drops 1 Drop erythromycin (ILOTYCIN) 5 mg/gram (0.5 %) ophthalmic ointment 0.5 Inch erythromycin (ILOTYCIN) 5 mg/gram (0.5 %) ophthalmic ointment 0.5 Inch hydralAZINE (APRESOLINE) injection 20 mg First Provider Eval: ED Events None AdmissionCare Guideline: Trauma, Inpatient Based on the indications selected for the patient, the bed status of Inpatient was determined to be MET The following indications were selected as present at the time of evaluation of the patient: - Nonoperative care of significant injury AdmissionCare documentation entered by: Faiza Garcia [facility] [employer], 27th edition, Copyright ? 2022 [facility] [employer] All Rights Reserved. [id number]:04:04-05:00 ED COURSE Diagnosis/Impression as of 03/10/24 0404 Retrobulbar hematoma Closed fracture of right orbital floor, initial encounter Procedures: Procedures MDM: Medical Decision Making Pt seen in ER by opthalmology and ENT. Plan made for admission to ENT service for observation Problems Addressed: Closed fracture of right orbital floor, initial encounter: acute illness or injury Retrobulbar hematoma: acute illness or injury Risk Prescription drug management. Parenteral controlled substances. Flowsheet Documentation: Scoring Tools: No data recorded Disposition/Condition: ED Disposition ED Disposition Admit - Observation Condition -- Comment Treatment Team: [facility] [[id number][facility] Discharge Medications: Current Discharge Medication List STOP taking these medications PARoxetine 10 mg tablet Comments: Reason for Stopping: Follow-up: Electronically signed by: Faiza Laurent DO 03/10/24 0404 [facility] 2024-03-09 23:00:00 AdmissionCare Guideline: Trauma, Inpatient Based on the indications selected for the patient, the bed status of Inpatient was determined to be MET The following indications were selected as present at the time of evaluation of the patient: - Nonoperative care of significant injury AdmissionCare documentation entered by: Faiza Garcia [facility] Advaction, 27th edition, Copyright ? 2022 [facility] [employer] [facility] All Rights Reserved. [id number]:04:04-05:00 [facility] 2024-03-09 21:57:01 Patient transferred to [facility] ED for diagnosis of Intraorbital fx Patient agrees to transfer/admit plan and verbalized understanding of plan of care, family aware of plan Patient awake alert, oriented, resp reg unlabored, skin w/d PIV patent, no s/s infiltration noted, No adverse reaction to medications given while in ED. Report given to [facility] personnel Tigist Shelton RN [facility] 2024-03-09 21:56:14 Nurse Report Report given to [facility] ED RN. Chief complaint, assessment findings, infusion verify and orders reviewed. Plan of care discussed with patient and both nurses. Patient/family members verbalized understanding. Tigist Shelton RN [facility] 2024-03-09 21:30:19 Physician at bedside for ocular decompression [facility] 2024-03-09 21:21:30 [facility] 25 MIN Kathleen Go PCT [facility] 2024-03-09 20:40:00 Patient upgraded to trauma based on detailed MD/aeronautical engineering professor. Trauma Activation Criteria met, trauma team activated per protocol. Tigist Shelton RN [facility] 2024-03-09 18:40:51 Patient states: "About 20 minutes ago I got hit by a baseball" Denies loc. Pmhx: htn Noted: swelling and bruising to right eye. Debbie Pino RN [facility] 2023-04-16 09:45:00 [facility] ([facility] EMERGENCY PROVIDER REPORT REPORT#:[id number] REPORT STATUS: Signed DATE:04/16/23 TIME: 944 PATIENT: FLORINDA DONALDSON UNIT #: [id number] ROOM/BED: AGE: 33 SEX: M PCP PHYS: No Primary or Family Physician SERVICE AUTHOR: Willard Chadwick DO * ALL edits or amendments must be made on the electronic/computer document * HPI-Chest Pain Under 40 General Initial Greet Date/Time 04/16/23 0839 Presentation Chief Complaint Chest pain Hx Obtained From Patient Sudden in Onset? No Onset Occurred Weeks ago Symptom Duration Constant Progression since Onset Intermittent Free Text HPI Notes Free Text HPI Notes 33-year-old male history of hypertension, not currently on medications presents ED with elevated blood pressure. Patient states he has been in alcohol rehabilitation facility for the last 2 months, has not had his medications which she does not remember. States he feels like his blood pressure has been elevated off and on, gets chest pressure, head pressure and occasional blurry vision, no symptoms currently. Denies numbness tingling or weakness to his extremities, vertigo or dizziness, difficulty walking, shortness of breath, fever or recent illness. Risk-Chest Pain Under 40 Risk Stratification )( Coronary Artery Disease Risk factors reviewed Thoracic Aortic Dissection Risk factors reviewed )( Pulmonary Embolism Risk factors reviewed )( AMI-Aspirin Aspirin Last 24 Hrs None )( HEART for MACE )( HEART for MACE Response Value History Low index of suspicion 0 ECG Interpretation Nonspec repol disturb 1 Age Age under 45 0 Risk Factors for CAD 1-2 CAD risk factors 1 Troponin < or = to NL troponin 0 Total 2 Review of Systems ROS Statements All systems rev neg except as marked. Focused Review of Systems Constitutional Denies: Chills, Fever, Lethargy. Respiratory Denies: Cough, non-productive, Cough, productive, Shortness of breath. GI Denies: Abdominal pain, Diarrhea, Nausea, Vomiting. Musculoskeletal Denies: Back pain, Extremity pain. Skin Denies: Diaphoresis, Rash. Neurologic Denies: Change LOC, Dizziness, Focal weakness, Numbness, Slurred speech. Psychiatric Denies: Anxiety, Depression. Past Medical History - Adult Stated Complaint HIGH BP, BLURRED VISION, ANXIETY Allergies Coded Allergies: No Known Allergies (04/16/23) Past Medical History: Reports: Hypertension. Smoking status for patients 13 years old or older: Former Smoker Physical Exam Vital Signs Vital Signs First Documented: Result Date Time Pulse Ox 100 04/16 0830 B/P 165/116 / 0830 B/P Mean 132 04/16 0830 O2 Delivery Room air 04/16 0830 Temp 36.8 / 0830 Pulse 88 / 0830 Resp 16 04/16 0830 Last Documented: Result Date Time Pulse Ox 96 04/16 1223 B/P 130/85 / 1223 B/P Mean 100 04/16 1223 O2 Delivery Room air 04/16 1223 Temp 36.7 04/16 1223 Pulse 77 04/16 1223 Resp 16 04/16 1223 Review of Vital Signs Reviewed Focused PE General/Const General/Const Awake, Alert, Well appearing Eyes Eyes PERRL MS Neck Neck Supple, Full range of motion, No swelling, Non-tender, No masses, No JVD Resp/Chest Respiratory/Chest Breath sounds NL, Breath sounds = bilat, No respiratory distress, No rales, No rhonchi, No wheezing, No chest tenderness Cardiovascular Cardiovascular Heart rate NL, Regular rhythm, Heart sounds NL, No murmurs, Peripheral circulation NL, Pulses = bilaterally, No gross BP differential Abdomen/GI Abdomen/GI Soft, Non-tender, No guarding, No rebound MS Back Back Inspection NL, Non-tender, No CVA tenderness MS Lower Extrem Lower Ext/Pelvis/MS Inspection NL, No swelling, Non-tender, No erythema, No deformity, Neurologic intact, Vascular intact, No edema Skin Skin Color NL, Warm, Dry, Turgor NL Neurologic Neurologic Oriented X3, Speech NL, No motor deficits, No sensory deficits Psychiatric Psychiatric Affect NL, Mood NL, Thought content NL Interpretation Diagnostics Lab Results Interpretation Results Laboratory Tests 04/16/23 0943: [Embedded Image Not Available] Laboratory Tests: 04/16 943 Chemistry Sodium (136 - 145 mmol/L) 141 Potassium (3.5 - 5.1 mmol/L) 4.7 Chloride (98 - 107 mmol/L) 107.0 Carbon Dioxide (21 - 32 mmol/L) 29.0 Anion Gap (10 - 20) 9.7 L BUN (7 - 18 mg/dL) 16 Creatinine (0.7 - 1.3 mg/dL) 0.90 Glomerular Filtr Rate (>=60 mL/min) > 60 BUN/Creatinine Ratio (10 - 20) 17.6 Glucose (74 - 106 mg/dL) 106 Calcium (8.5 - 10.1 mg/dL) 9.4 Troponin I (0 - 45 pg/mL) <4.0 Hematology WBC (4.5 - 12.5 K/mm3) 6.0 RBC (4.0 - 5.8 mill/mm3) 4.97 Hgb (13.0 - 17.5 gram/dL) 14.8 Hct (42.0 - 52.0 %) 45.0 MCV (80 - 98 fL) 90.5 MCH (27.0 - 33.0 picogram) 29.8 MCHC (33.0 - 36.0 gram/dL) 32.9 L RDW (11.6 - 16.2 %) 12.6 Plt Count (150 - 450 K/mm3) 284 MPV (6.7 - 11.0 fL) 11.2 H Recent Impressions: RADIOLOGY - XR CHEST 1 V 04/16 928 Report Impression - Status: SIGNED Entered: 04/16/2023 1003 IMPRESSION: No acute abnormality. Impression By: Loyd Munroe M.D. CAT SCAN - CT HEAD/BRAIN W/O CONT 04/16 0941 Report Impression - Status: SIGNED Entered: 04/16/2023 1043 IMPRESSION: No acute intracranial abnormality. Impression By: Loyd Munroe M.D. ECG #1 Interpretation ECG Interpretation Note EKG at 920 shows normal sinus rhythm, rate 73, normal axis, normal intervals, nonspecific ST-T wave changes, no STEMI, interpreted by me Re-Evaluation MDM Free Text MDM Notes Free Text MDM Notes DDx include but not limited to hypertension, hypertensive crisis, intracranial hemorrhage, ischemic stroke, brain mass, glaucoma, central retinal vein/arterial occlusion, vitreous hemorrhage, retinal detachment, ACS, aortic dissection, pneumothorax, pulmonary edema Labs interpreted by myself, no results require emergent treatment Chest x-ray interpreted by myself, no pulmonary edema 1045-reassessed patient, resting comfortably, asymptomatic, normal heart lung exam and normal neurologic exam, discussed results, discharge plan, follow-up and return precautions, patient understands and agrees with discharge plan ED Course Medication(s) Ordered Medication(s) Ordered: Cardiovascular Drugs Sig/Drew Start time Last Medication Dose Route Stop Time Status Admin Clonidine HCl 0.1 MG X1ED STA 04/16 0944 DC 04/16 PO 04/16 0945 1023 Patient Discharge Departure Vital Signs/Condition Vital Signs First Documented: Result Date Time Pulse Ox 100 04/16 0830 B/P 165/116 04/16 0830 B/P Mean 132 04/16 0830 O2 Delivery Room air 04/16 0830 Temp 36.8 04/16 0830 Pulse 88 04/16 0830 Resp 16 04/16 830 Last Documented: Result Date Time Pulse Ox 96 04/16 1223 B/P 130/85 04/16 1223 B/P Mean 100 04/16 1223 O2 Delivery Room air 04/16 1223 Temp 36.7 04/16 1223 Pulse 77 04/16 1223 Resp 16 04/16 1223 All vital signs available at the time of this entry have been reviewed. Clinical Impression Clinical Impression Primary Impression: Accelerated hypertension Secondary Impressions: Atypical chest pain Disposition Decision Discharge )( Discharged to Home Yes )( Time 1050 )( Date 04/16/23 Discharge/Care Plan Counseled Regarding Diagnosis, Lab results, Imaging studies, Prescriptions, Need for follow-up, When to return to ED (Auto) Prescriptions Current Visit Scripts LISINOPRIL (ZESTRIL) 5 MG PO DAILY 30 Days #30 TABS Patient Instructions ED Hypertension, Established Additional Instructions Fill prescription for medication and take as directed. Follow-up with primary care provider in the next 2 to 3 days for recheck and further blood pressure management. Return to ED with any concerns include but not limited to worsening chest pain or headache, blurry vision, abdominal pain, nausea or vomiting. Departure Forms FREE OR LOW COST CLINICS PCP LIST at 0812 RPT #:[id number] END OF REPORT [facility] 2023-04-16 09:20:00 [id number] [facility] PATIENT NAME: FLORINDA DONALDSON ADMIT DATE: 04/16/23 ACCOUNT NO: [id number] ROOM NO: AGE: 33 REPORT TYPE: eEKG REPORT SEX: M DATE OF : [birth year] ADMITTING PHYSICIAN: ATTENDING PHYSICIAN: Order: [id number] Test Reason : Test Date/Time Stamp: SunApr 16 2023 09:20:35 Blood Pressure : / mmHG Vent. Rate : 073 BPM Atrial Rate : 073 BPM P-R Int : 134 ms QRS Dur : 094 ms QT Int : 366 ms P-R-T Axes : 033 079 022 degrees QTc Int : 403 ms Normal sinus rhythm with sinus arrhythmia Normal ECG No previous ECGs available Confirmed by MD DAVE MOHAMED ([id number]) on 04/16/2023 5:00:50 PM Referred By: Self Referred Confirmed by:JOSE CRUZ DAVE MD at 1700 PATIENT NAME: FLORINDA DONALDSON [facility]
--- NOTE | 2025-08-07 18:40 | ER ---
Nurse's Notes [facility] Name: Bradford Donaldson Age: 35 yrs Sex: Male : 1990 Arrival Date: 08/07/2025 Time: 18:20 Bed IW3 Private MD: Diagnosis: Acute allergic reaction to unknown allergen, lip swelling Presentation: 08/07 18:33 Chief complaint: Patient states: UPPER LIP SWELLING. STATES DID NOTHING OUT OF NORMAL db TODAY. NOTED UPPER LIP SWELLING. PT IN NAD. NO DIFFICULTY BREATHING. Coronavirus screen: Client denies travel out of the [place] in the last 14 days. At this time, the client does not indicate any symptoms associated with coronavirus-19. Ebola Screen: Patient negative for fever greater than or equal to 101.5 degrees Fahrenheit, and additional compatible Ebola Virus Disease symptoms Patient denies exposure to infectious person. Patient denies travel to an Ebola-affected area in the 21 days before illness onset. No symptoms or risks identified at this time. Initial Sepsis Screen: Does the patient meet any 2 criteria? No. Patient's initial sepsis screen is negative. Does the patient have a suspected source of infection? No. Patient's initial sepsis screen is negative. Risk Assessment: Do you want to hurt yourself or someone else? Patient reports no desire to harm self or others. Onset of symptoms was August 07, 2025. 18:33 Method Of Arrival: Ambulatory db 18:33 Acuity: BRUCE 3 db Triage Assessment: 18:35 General: Appears in no apparent distress. comfortable, Behavior is calm, cooperative. db Pain: Denies pain. EENT: LIP SWELLING. Respiratory: Airway is patent Respiratory effort is even, unlabored, Respiratory pattern is regular, symmetrical. Derm: Historical: - Allergies: 18:34 No Known Allergies; db - PMHx: 18:34 HERPES; Hypertensive disorder; Hypertensive disorder; db - Immunization history:: Adult Immunizations unknown. - Infectious Disease History:: Denies. - Social history:: Smoking status: . Screenin:58 [facility] ED Fall Risk Assessment (Adult) History of falling in the last 3 months, db including since admission No falls in past 3 months (0 pts) Confusion or Disorientation No (0 pts) Intoxicated or Sedated No (0 pts) Impaired Gait No (0 pts) Mobility Assist Device Used No (0 pt) Altered Elimination No (0 pt) Score/Fall Risk Level 0 - 2 = Low Risk Oriented to surroundings, Maintained a safe environment. Abuse screen: Denies threats or abuse. Denies injuries from another. Nutritional screening: No deficits noted. Tuberculosis screening: No symptoms or risk factors identified. Assessment: 18:58 Reassessment: Patient appears in no apparent distress at this time. Patient and/or db family updated on plan of care and expected duration. Pain level reassessed. Patient is alert, oriented x 3, equal unlabored respirations, skin warm/dry/pink. General: Appears in no apparent distress. comfortable, Behavior is calm, cooperative. Neuro: Level of Consciousness is awake, alert, obeys commands, Oriented to person, place, time, situation. Vital Signs: 18:33 BP 177 / 127; Pulse 84; Resp 16; Temp 97.8; Pulse Ox 99% ; db ED Course: 18:22 Patient arrived in ED. mr 18:27 Nicole Abarca PA-C is PHCP. sb4 18:27 Humble Sanchez MD is Attending Physician. sb4 18:34 Triage completed. db 18:35 Arm band placed on right wrist. db 18:39 Thuy Nick MD is Referral Physician. sb4 18:53 Katelynn Bernal, RN is Primary Nurse. db 18:58 Patient has correct armband on for positive identification. Provided Education on: db PRESCRIPTIONS. 18:58 No provider procedures requiring assistance completed. Patient did not have IV access db during this emergency room visit. Administered Medications: 18:50 Drug: Famotidine PO 20 mg PO once Route: PO; db 18:58 Follow up: Response: No adverse reaction db 18:50 Drug: Cetirizine PO 10 mg PO once Route: PO; db 18:58 Follow up: Response: No adverse reaction db 18:50 Drug: predniSONE PO 40 mg PO once Route: PO; db 18:58 Follow up: Response: No adverse reaction db Medication: 18:58 VIS not applicable for this client. db Outcome: 18:40 Discharge ordered by . sb4 18:58 Discharged to home ambulatory, db 18:58 Condition: stable 18:58 Discharge instructions given to patient, Instructed on discharge instructions, follow up and referral plans. Prescriptions given X 3, 18:59 Patient left the ED. db Signatures: Manjula Leone, Reg Reg mr Gabe Katelynn, RN RN db Nicole Abarca, PANarciso PAGerardoC sb4 Corrections: (The following items were deleted from the chart) 18:36 18:33 Pulse 84bpm; Resp 16bpm; Pulse Ox 99%; Temp 97.8F; db db 18:39 18:33 BP 177 / 135; Pulse 84bpm; Resp 16bpm; Pulse Ox 99%; Temp 97.8F; db db
--- NOTE | 2025-08-07 18:40 | EDPHYS ---
[facility] Name: Bradford Donaldson Age: 35 yrs Sex: Male : 1990 Arrival Date: 08/07/2025 Time: 18:20 Bed IW3 Private MD: ED Physician Humble Sanchez HPI: 08/07 18:53 This 35 yrs old Male presents to ER via Ambulatory with complaints of Lips Swelling. sb4 18:53 Patient states that he ate a small amount of [place] food, specifically shrimp this sb4 afternoon. Shortly after, his right upper lip started swelling. He states that he gave it some time because this has happened before and it went away on its own but it remained swollen although has improved. He denies any shortness of breath, airway tightness, wheezing, lip swelling, rash, itching, flushing. Denies any formally diagnosed allergies. Has not taken any antihistamines prior to arrival. Historical: - Allergies: 18:34 No Known Allergies; db - PMHx: 18:34 HERPES; Hypertensive disorder; Hypertensive disorder; db - Immunization history:: Adult Immunizations unknown. - Infectious Disease History:: Denies. - Social history:: Smoking status: . ROS: 18:53 Constitutional: Negative for fever, chills, and weight loss, sb4 18:53 ENT: Positive for Per HPI, 18:53 All other systems are negative, Exam: 18:53 Constitutional: This is a well developed, well nourished patient who is awake, alert, sb4 and in no acute distress. Head/Face: Normocephalic, atraumatic. Eyes: Extra-ocular motions intact. Periorbital areas with no swelling, redness, or edema. Cardiovascular: Regular rate and rhythm with a normal S1 and S2. Respiratory: No increased work of breathing, no retractions or nasal flaring. Abdomen/GI: Soft, non-tender, no distension. Skin: Warm, dry with normal turgor. Normal color with no rashes, no lesions, and no evidence of cellulitis. 18:53 ENT: Mouth: Lips: Right upper lip moderately swollen, Posterior pharynx: is normal, airway is patent, Vital Signs: 18:33 BP 177 / 127; Pulse 84; Resp 16; Temp 97.8; Pulse Ox 99% ; db MDM: 18:27 Medical Screening Exam initiated sb4 18:54 Data reviewed: vital signs, nurses notes, and as a result, I will discharge patient. sb4 Counseling: I had a detailed discussion with the patient and/or guardian regarding the historical points, exam findings, and any diagnostic results supporting the discharge/admit diagnosis, the need for outpatient follow up, for definitive care, an ENT specialist, to return to the emergency department if symptoms worsen or persist or if there are any questions or concerns that arise at home. Administered Medications: 18:50 Drug: Famotidine PO 20 mg PO once Route: PO; db 18:58 Follow up: Response: No adverse reaction db 18:50 Drug: Cetirizine PO 10 mg PO once Route: PO; db 18:58 Follow up: Response: No adverse reaction db 18:50 Drug: predniSONE PO 40 mg PO once Route: PO; db 18:58 Follow up: Response: No adverse reaction db Disposition Summary: 08/07/25 18:40 Discharge Ordered Notes: Location: Home sb4 Problem: new sb4 Symptoms: have improved sb4 Condition: Stable sb4 Diagnosis - Acute allergic reaction to unknown allergen, lip swelling sb4 Followup: sb4 - With: Emergency Department - When: As needed - Reason: Trouble breathing, Worsening of condition Followup: sb4 - With: Thuy Nick MD - When: As needed - Reason: Further diagnostic work-up, Recheck today's complaints, Re-evaluation by your physician Discharge Instructions: - Discharge Summary Sheet sb4 - Seafood Allergy sb4 - Angioedema, [id number] sb4 - Food Allergy, [id number] sb4 Forms: - Work release form sb4 - Patient Portal Instructions sb4 - Leadership Thank You Letter sb4 Prescriptions: - Pepcid 20 mg Oral Tablet - take 1 tablet ORAL route every 12 hours for 5 days; 10 tablet; Refills: 0, sb4 Product Selection Permitted - Prednisone 20 mg Oral Tablet - take 1 tablet ORAL route once daily for 5 days; 5 tablet; Refills: 0, Product sb4 Selection Permitted - Loratadine 10 mg Oral Tablet - take 1 tablet ORAL route once daily; 14 tablet; Refills: 0, Product Selection sb4 Permitted Signatures: Katelynn Bernal, RN RN Nicole Richards PA-C PA-C sb4
[2025-08-07] MEDS ORDERED: CETIRIZINE HCL 5 MG TABLET ONE (18:51)
[2025-08-07] MEDS ORDERED: predniSONE 20 MG TAB ONE (18:51)
[2025-08-07] MEDS ORDERED: FAMOTIDINE 20 MG TAB ONE (18:51)
[2025-08-07 19:30] VITALS: BP 177/127; TEMP 97.8; O2SAT 99
== END 2025-08-07 18:59 | disposition home or self-care (01) ==
LOC: ER 18:20
DX: R22.0 Localized swelling, mass and lump, head (principal)
CPT/HCPCS: 99283; J7512